=== PATIENT | female | born 1930 | race Caucasian/White ===

== ENCOUNTER → 2016-11-30 | Outpatient (CLI) | payer MEDICARE, OTHER ==
--- NOTE | 2016-11-30 12:06 | MM ---
Reason for exam: clinical finding. Last mammogram was performed 13 years and 8 months ago. History: Patient history of breast cancer and is nulliparous. Excisional biopsy of the right breast. Mastectomy of the right breast. Took estrogen beginning at age 46. Physical Findings: Nurse Summary: 2cm nodule in the left breast at 1 o'clock (nurse arvin). MG 3D Diag Mammo W/Cad LT CC and MLO view(s) were taken of the left breast. Prior study comparison: March 25, 2003, left breast screening mammogram. March 29, 2002, left breast diagnostic mammogram. The breast tissue is heterogeneously dense. This may lower the sensitivity of mammography. Spiculated mass in the left breast at 1 o'clock measuring approximately 1.5cm with internal pleomorphic calcifications. Ultrasound recommended. No additional masses seen. These results were verbally communicated with the patient and result sheet given to the patient on 11/30/16. ASSESSMENT: Incomplete: need additional imaging evaluation, BI-RAD 0 RECOMMENDATION: Ultrasound of the left breast. Manage patient on a clinical basis. CRYSTAL
--- NOTE | 2016-11-30 12:10 | USB ---
Reason for exam: additional evaluation requested from abnormal screening. History: Patient history of breast cancer and is nulliparous. Excisional biopsy of the right breast. Mastectomy of the right breast. Took estrogen beginning at age 46. US Breast Limited LT Left breast ultrasound demonstrates a 1.2 x 0.6 x 1.6cm irregular, spiculated, taller than wide, solid, vascular, hypoechoic lesion with calcifications at 1 o'clock palpable. These results were verbally communicated with the patient and result sheet given to the patient on 11/30/16. ASSESSMENT: Highly suggestive of malignancy, BI-RAD 5 RECOMMENDATION: Ultrasound core biopsy of the left breast. Manage patient on a clinical basis. Called Dr. Griffin with mammographic findings and has scheduled an appointment for the patient for 12/06/16 at 9:[address] Gillespie. PRELIMINARY REPORT CALLED AND FAXED TO DR. GILLESPIE ON 11/30/16/TMP.
--- NOTE | 2016-11-30 13:26 | BD ---
EXAMINATION TYPE: MG DEXA axial skeleton. 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 History of Fracture in Adulthood: YES LT HIP FX AGE 75 Secondary Osteoporosis: 1. Type 1 Diabetes: NO 2. Hyperthyroidism: NO 3. Menopause before 45: YES AGE 43 4. Malnutrition: NO 5. Chronic liver disease: NO Rheumatoid Arthritis: NO Current Tobacco Use: NO RISK FACTORS HISTORY OF: Hip Fracture (Left): YES When: AGE 75 Active: MODERATE Postmenopausal woman: AGE 43 Take estrogen and/or progesterone medications: NOT NOW How long: AGE 43 - 46 MEDICATIONS: Additional Medications: REPAGLINIDE, METOPROLOL, METFORMIN, ENALAPRIL, LOW DOSE ASPIRIN, PREVASTATIN , WARFARIN, FISH OIL, ZYRTEC, AZO CRANBERRY, Additional History: BREAST CANCER EXAM MEASUREMENTS: Bone mineral densitometry was performed using the Jammcard System. Bone mineral density as measured about the Lumbar spine is: ----- L1-L4(G/cm2): 1.119 T Score Values are as follows: ----- L2: -0.2 ----- L3: -0.2 ----- L4: -0.9 ----- L1-L4: -0.5 Bone mineral density has: Increased 8.3% since study of: 05/25/2010 Bone mineral density about the R hip (g/cm2): 0.746 T Score values are as follows: -----R Neck: -2.1 -----R Total: -2.0 Bone mineral density has: Decreased -8.3% since study of: 05/25/2010 IMPRESSION: Osteopenia about the right hip and as such there is increased fracture risk. NOTE: T-SCORE=SD OF THE YOUNG ADULT MEAN.
== END | disposition home or self-care (01) ==
LOC: RADMAMWWP 10:02
PROVIDERS: ATTEND Internal Medicine Geriatric Medicine
DX: C50.919 Malignant neoplasm of unspecified site of unspecified female breast (principal); M85.88 Other specified disorders of bone density and structure, other site; R92.8 Other abnormal and inconclusive findings on diagnostic imaging of breast
CPT/HCPCS: 77080; 76642; G0206; G0279

== ENCOUNTER → 2016-12-14 | Day surgery (SDC) | payer MEDICARE, OTHER ==
[2016-12-14 11:32] LABS: INR 1.1 (<1.2); Prothrombin Time 10.7 sec (9.0-12.0)
[2016-12-14 12:18] VITALS: RESP 16; BMI 24.7
[2016-12-14 13:23] VITALS: BP 145/65; PULSE 70; TEMP 98.3
--- NOTE | 2016-12-14 13:30 | USB ---
EXAMINATION TYPE: US breast needle core LT DATE OF EXAM: 12/14/2016 HISTORY: Left breast mass. FINDINGS: Maximal barrier technique was utilized. The skin overlying a suitable path to the patient' s mass was localized with ultrasound and the overlying skin prepped and draped. Ultrasound was utili zed with sterile technique. Lidocaine was used for local anesthesia. A skin nicole was made with a sc alpel. An 14-gauge needle was advanced under direct ultrasound guidance and core specimen obtained o f the mass. Specimen submitted in formalin to Pathology. Following the procedure, hemostasis achiev ed and the patient is discharged in stable condition without complication. IMPRESSION:STATUS POST ULTRASOUND GUIDED CORE BIOPSY OF 12:00 left breast MASS, PATHOLOGY IS PENDING. THIS PROCEDURE IS PERFORMED BY THE UNDERSIGNED.
--- NOTE | 2016-12-14 13:32 | MM ---
Diagnostic left mammogram HISTORY: Status post left breast biopsy, marker placement 2 digital mammographic views of the left breast correlated to pre biopsy mammogram dated 11/30/2016 Metallic marker has been placed immediately adjacent to the left breast mass. IMPRESSION: Mammogram for marker placement verification.
== END ==
LOC: RADUSWWP 10:46
PROVIDERS: ATTEND Student in an Organized Health Care Education/Training Program
DX: C50.912 Malignant neoplasm of unspecified site of left female breast (principal)
CPT/HCPCS: 88305; 85610; 85730; 19083; 36415; G0206; A4648

== ENCOUNTER 2018-02-18 10:33 | Emergency (ER) | payer MEDICARE, OTHER ==
[2018-02-18] MEDS ORDERED: SODIUM CHLORIDE 0.9% 500 ML 500 ML IV STA (10:46)
[2018-02-18 10:58] VITALS: TEMP 98.5
--- NOTE | 2018-02-18 11:00 | ED ---
General Adult HPI - General Stated complaint: A FIB Time Seen by Provider: 02/18/18 10:36 Source: patient, EMS, RN notes reviewed, old records reviewed Mode of arrival: EMS Limitations: no limitations - History of Present Illness Initial comments: 87-year-old female history of atrial fibrillation presenting for evaluation of palpitations. Palpitations began approximately one hour prior to arrival. Patient is currently on Coumadin and metoprolol for her A. fib. She does have history of CAD with 1 stent. Patient denies chest pain. She did have some neck discomfort associated with her palpitations. No dyspnea. No diaphoresis. No abdominal pain. No nausea vomiting. No fever or chills. No dysuria. - Related Data Home Medications Medication Instructions Recorded Confirmed Enalapril [Vasotec] 10 mg PO DAILY 11/21/14 02/18/18 Fish Oil/Dha/Epa [Fish Oil 1,200 1 cap PO BID 11/21/14 02/18/18 mg Fish Oil] Multivit-Min/FA/Lycopene/Lut 1 tab PO Q48H 11/21/14 02/18/18 [Centrum Silver Tablet] Pravastatin Sodium [Pravachol] 40 mg PO HS 11/21/14 02/18/18 Repaglinide [Prandin] 0.5 mg PO TID 11/21/14 02/18/18 Warfarin [Coumadin] 2.5 mg PO MOWEFR 11/21/14 02/18/18 Warfarin [Coumadin] 5 mg PO SUTUTHSA 12/08/16 02/18/18 metFORMIN HCL [Glucophage] 500 mg PO BID 12/08/16 02/18/18 Acetaminophen Tab [Tylenol Tab] 500 mg PO Q6HR PRN 02/18/18 02/18/18 Alendronate Sodium [Fosamax] 70 mg PO TH 02/18/18 02/18/18 Anastrozole [Arimidex] 1 mg PO W/SUPPER 02/18/18 02/18/18 Calcium Citrate 250 mg PO BID 02/18/18 02/18/18 Cetirizine HCl [Zyrtec] 10 mg PO DAILY 02/18/18 02/18/18 Cranberry Fruit Extract [Cranberry] 200 mg PO DAILY 02/18/18 02/18/18 Isosorbide Mononitrate ER [Imdur] 30 mg PO DAILY 02/18/18 02/18/18 Lisinopril [Zestril] 10 mg PO DAILY 02/18/18 02/18/18 Metoprolol Succinate (ER) [Toprol 25 mg PO DAILY 02/18/18 02/18/18 Xl] Nitroglycerin Sl Tabs [Nitrostat] 0.4 mg SUBLINGUAL Q5M PRN 02/18/18 02/18/18 Allergies Allergy/AdvReac Type Severity Reaction Status Date / Time cefuroxime [From Ceftin] Allergy Unknown Verified 02/18/18 12:16 latex Allergy Rash/Hives Verified 02/18/18 12:15 glipizide AdvReac Unknown Verified 02/18/18 12:15 phenazopyridine HCl AdvReac Unknown Verified 02/18/18 12:15 [From Pyridium] sulfamethoxazole AdvReac Unknown Verified 02/18/18 12:15 [From Bactrim] ticlopidine HCl [From Ticlid] AdvReac Diarrhea Verified 02/18/18 12:15 trimethoprim [From Bactrim] AdvReac Unknown Verified 02/18/18 12:15 CANNED SALMON Allergy Severe Anaphylaxis Uncoded 12/08/16 16:15 CANNED TUNA Allergy Severe Anaphylaxis Uncoded 12/08/16 16:15 Review of Systems ROS Statement: Those systems with pertinent positive or pertinent negative responses have been documented in the HPI. ROS Other: All systems not noted in ROS Statement are negative. Past Medical History Past Medical History: Coronary Artery Disease (CAD), Chest Pain / Angina, Diabetes Mellitus, Hyperlipidemia, Hypertension Additional Past Medical History / Comment(s): afib History of Any Multi-Drug Resistant Organisms: None Reported Past Surgical History: No Surgical Hx Reported Additional Past Surgical History / Comment(s): rt cataract, rt breast bx/ masectomy. lt hand sx, LT EYE PROTHESIS Past Anesthesia/Blood Transfusion Reactions: Postoperative Nausea & Vomiting ( PONV) Past Psychological History: No Psychological Hx Reported Smoking Status: Never smoker Past Alcohol Use History: None Reported Past Drug Use History: None Reported - Past Family History Father Family Medical History: Dementia, Myocardial Infarction ([place]) Mother Family Medical History: Renal Disease, Rheumatoid Arthritis (RA) Additional Family Medical History / Comment(s): HEART PROBLEMS General Exam Limitations: no limitations General appearance: alert, in no apparent distress Head exam: Present: atraumatic, normocephalic Eye exam: Present: normal appearance, PERRL ENT exam: Present: normal exam Neck exam: Present: normal inspection. Absent: tenderness, meningismus Respiratory exam: Present: normal lung sounds bilaterally. Absent: respiratory distress, wheezes Cardiovascular Exam: Present: regular rate, normal rhythm GI/Abdominal exam: Present: soft. Absent: distended, tenderness Extremities exam: Present: pedal edema (trace) Neurological exam: Present: alert, oriented X3, CN II-XII intact. Absent: motor sensory deficit Psychiatric exam: Present: normal affect, normal mood Skin exam: Present: warm, dry, intact. Absent: cyanosis, diaphoretic Course Vital Signs 02/18/18 10:46 Temperature 98.5 F Pulse Rate 75 Respiratory 18 Rate Blood Pressure 196/103 O2 Sat by Pulse 98 Oximetry EKG Findings - EKG Comments: EKG Findings:: Sinus rhythm with first-degree AV block, left ventricular hypertrophy, ventricular rate 73, TX interval 218, QRS duration 84, QTC 436, no ST segment elevation Medical Decision Making - Medical Decision Making 87 yo female presenting with chief complaint of palpitations. No chest pain. EKG shows sinus rhythm with first-degree AV block. She has normal CBC, normal CMP and electrolytes. Troponin negative. INR is therapeutic at 2.6. Chest x- ray shows hyperinflation and cardiomegaly, no focal pneumonia or acute findings. Patient will continue medications at home as prescribed. 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 Initial blood pressure is high however this normalizes without treatment - Lab Data Result diagrams: 02/18/18 10:39 02/18/18 10:39 Lab Results 02/18/18 02/18/18 02/18/18 Range/Units 10:39 10:39 10:39 WBC 5.1 (3.8-10.6) k/uL RBC 4.94 (3.80-5.40) m/uL Hgb 13.5 (11.4-16.0) gm/dL Hct 40.6 (34.0-46.0) % MCV 82.1 (80.0-100.0) fL MCH 27.3 (25.0-35.0) pg MCHC 33.3 (31.0-37.0) g/dL RDW 15.5 (11.5-15.5) % Plt Count 136 L (150-450) k/uL Neutrophils % 66 % Lymphocytes % 24 % Monocytes % 6 % Eosinophils % 2 % Basophils % 1 % Neutrophils # 3.4 (1.3-7.7) k/uL Lymphocytes # 1.2 (1.0-4.8) k/uL Monocytes # 0.3 (0-1.0) k/uL Eosinophils # 0.1 (0-0.7) k/uL Basophils # 0.0 (0-0.2) k/uL PT (9.0-12.0) sec INR (<1.2) APTT (22.0-30.0) sec Sodium 135 L (137-145) mmol/L Potassium 3.9 (3.5-5.1) mmol/L Chloride 101 (98-107) mmol/L Carbon Dioxide 26 (22-30) mmol/L Anion Gap 8 mmol/L BUN 25 H (7-17) mg/dL Creatinine 0.53 (0.52-1.04) mg/dL Est GFR (CKD-EPI)AfAm >90 (>60 ml/min/1.73 sqM) Est GFR (CKD-EPI)NonAf 87 (>60 ml/min/1.73 sqM) Glucose 234 H (74-99) mg/dL Calcium 9.1 (8.4-10.2) mg/dL Magnesium 1.6 (1.6-2.3) mg/dL Total Bilirubin 0.6 (0.2-1.3) mg/dL AST 20 (14-36) U/L ALT 28 (9-52) U/L Alkaline Phosphatase 41 (38-126) U/L Total Creatine Kinase 56 (30-135) U/L CK-MB (CK-2) 2.0 (0.0-2.4) ng/mL CK-MB (CK-2) Rel Index 3.6 Troponin I <0.012 (0.000-0.034) ng/mL Total Protein 6.2 L (6.3-8.2) g/dL Albumin 3.6 (3.5-5.0) g/dL 02/18/18 Range/Units 10:39 WBC (3.8-10.6) k/uL RBC (3.80-5.40) m/uL Hgb (11.4-16.0) gm/dL Hct (34.0-46.0) % MCV (80.0-100.0) fL MCH (25.0-35.0) pg MCHC (31.0-37.0) g/dL RDW (11.5-15.5) % Plt Count (150-450) k/uL Neutrophils % % Lymphocytes % % Monocytes % % Eosinophils % % Basophils % % Neutrophils # (1.3-7.7) k/uL Lymphocytes # (1.0-4.8) k/uL Monocytes # (0-1.0) k/uL Eosinophils # (0-0.7) k/uL Basophils # (0-0.2) k/uL PT 23.0 H (9.0-12.0) sec INR 2.6 H (<1.2) APTT 29.5 (22.0-30.0) sec Sodium (137-145) mmol/L Potassium (3.5-5.1) mmol/L Chloride (98-107) mmol/L Carbon Dioxide (22-30) mmol/L Anion Gap mmol/L BUN (7-17) mg/dL Creatinine (0.52-1.04) mg/dL Est GFR (CKD-EPI)AfAm (>60 ml/min/1.73 sqM) Est GFR (CKD-EPI)NonAf (>60 ml/min/1.73 sqM) Glucose (74-99) mg/dL Calcium (8.4-10.2) mg/dL Magnesium (1.6-2.3) mg/dL Total Bilirubin (0.2-1.3) mg/dL AST (14-36) U/L ALT (9-52) U/L Alkaline Phosphatase (38-126) U/L Total Creatine Kinase (30-135) U/L CK-MB (CK-2) (0.0-2.4) ng/mL CK-MB (CK-2) Rel Index Troponin I (0.000-0.034) ng/mL Total Protein (6.3-8.2) g/dL Albumin (3.5-5.0) g/dL Disposition Clinical Impression: Palpitations, Atrial fibrillation Disposition: HOME SELF-CARE Condition: Good Instructions: Heart Palpitations (ED) Is patient prescribed a controlled substance at d/c from ED?: No Referrals: Godfrey Griffin MD [Primary Care Provider] - 1-2 days Darlin Arriaga MD [STAFF PHYSICIAN] - 1-2 days Time of Disposition: 12:45
[2018-02-18 11:05] LABS: Basophils % (A) 1 %; Eosinophils # (A) 0.1 k/uL (0-0.7); Eosinophils % (A) 2 %; HCT 40.6 % (34.0-46.0); HGB 13.5 gm/dL (11.4-16.0); Lymphocytes # (A) 1.2 k/uL (1.0-4.8); Lymphocytes % (A) 24 %; MCH 27.3 pg (25.0-35.0); MCHC 33.3 g/dL (31.0-37.0); MCV 82.1 fL (80.0-100.0); Monocytes # (A) 0.3 k/uL (0-1.0); Monocytes % (A) 6 %; Neutrophils # (A) 3.4 k/uL (1.3-7.7); Neutrophils % (A) 66 %; Platelet Count 136 k/uL (150-450); RBC 4.94 m/uL (3.80-5.40); RDW 15.5 % (11.5-15.5); WBC 5.1 k/uL (3.8-10.6)
[2018-02-18 11:14] LABS: ALT 28 U/L (9-52); AST 20 U/L (14-36); Albumin 3.6 g/dL (3.5-5.0); Alkaline Phosphatase 41 U/L (38-126); Anion Gap 8 mmol/L; Blood Urea Nitrogen 25 mg/dL (7-17); Calcium 9.1 mg/dL (8.4-10.2); Carbon Dioxide 26 mmol/L (22-30); Chloride 101 mmol/L (98-107); Glucose 234 mg/dL (74-99); Magnesium 1.6 mg/dL (1.6-2.3); Potassium 3.9 mmol/L (3.5-5.1); Sodium 135 mmol/L (137-145); Total Bilirubin 0.6 mg/dL (0.2-1.3); Total Protein 6.2 g/dL (6.3-8.2)
[2018-02-18 11:33] LABS: Creatine Kinase 56 U/L (30-135)
[2018-02-18 11:41] LABS: INR 2.6 (<1.2); Partial Thromboplastin Time 29.5 sec (22.0-30.0)
[2018-02-18 11:46] LABS: Troponin I <0.012 ng/mL (0.000-0.034)
--- NOTE | 2018-02-18 11:50 | XR ---
EXAMINATION TYPE: XR chest 2V DATE OF EXAM: 02/18/2018 HISTORY: dysrhythmia. REFERENCE: NONE. FINDINGS: Lung volumes are prominent. The heart is mildly enlarged. There are senescent changes withi n the lungs. I do not see evidence of pneumonia or edema. Pleural spaces are clear. IMPRESSION: 1. COPD. 2. CARDIOMEGALY.
[2018-02-18] MEDS ORDERED: SODIUM CHLORIDE 0.9% 500 ML 500 ML IV ONE (12:21)
[2018-02-18 12:48] VITALS: BP 144/64; PULSE 62; RESP 20
== END 2018-02-18 13:04 | disposition home or self-care (01) ==
LOC: EC 10:33
DX: I48.91 Unspecified atrial fibrillation (principal); I44.0 Atrioventricular block, first degree; R91.8 Other nonspecific abnormal finding of lung field; R60.0 Localized edema; E78.5 Hyperlipidemia, unspecified; I11.9 Hypertensive heart disease without heart failure; I25.10 Atherosclerotic heart disease of native coronary artery without angina pectoris; E11.9 Type 2 diabetes mellitus without complications; Z88.1 Allergy status to other antibiotic agents; Z88.2 Allergy status to sulfonamides; Z88.8 Allergy status to other drugs, medicaments and biological substances; Z91.018 Allergy to other foods; Z91.040 Latex allergy status; Z79.01 Long term (current) use of anticoagulants; Z79.84 Long term (current) use of oral hypoglycemic drugs; Z79.899 Other long term (current) drug therapy; Z86.79 Personal history of other diseases of the circulatory system; Z82.49 Family history of ischemic heart disease and other diseases of the circulatory system; Z95.818 Presence of other cardiac implants and grafts
CPT/HCPCS: 36415; 71046; 80053; 82550; 82553; 83735; 84484; 85025; 85610; 85730; 93005; 96360; 96361; 99285

== ENCOUNTER 2018-09-18 03:53 | Observation (INO) | payer MEDICARE, OTHER ==
[2018-09-18] MEDS ORDERED: SODIUM CHLORIDE 0.9% 500 ML 500 ML IV ONE (04:39)
--- NOTE | 2018-09-18 04:43 | ED ---
Fall HPI - General Chief Complaint: Fall Stated Complaint: Fall Source: patient Mode of arrival: ambulatory - History of Present Illness Initial Comments: Brenna is a pleasant 88-year-old female who presents to the emergency department today for evaluation of fall from standing. Patient reports she got up this morning to use the restroom and was able to ambulate independently to her bathroom. She reports that when she went to sit down and sat of sitting backwards she fell forwards striking her right forearm and right side of her ribs on the bathtub. Patient reports that her legs just twisted like pretzels underneath her and she had a lot of trouble getting them untwisted. Initially she had trouble getting back up on her feet but with assistance she was able stand and ambulate. Patient reports that since the fall she has pain in her right ankle she had pain in her right hip but it seems to have resolved, and pain in her right-sided ribs. Patient does take Coumadin. Patient did not lose consciousness she did not strike her head. The fall was mechanical in nature. Patient does report that she's been urinating very frequently which is why she was up at 3:30 in the morning to use a restaurant. - Related Data Home Medications Medication Instructions Recorded Confirmed Enalapril [Vasotec] 10 mg PO DAILY 11/21/14 02/18/18 Fish Oil/Dha/Epa [Fish Oil 1,200 1 cap PO BID 11/21/14 02/18/18 mg Fish Oil] Multivit-Min/FA/Lycopene/Lut 1 tab PO Q48H 11/21/14 02/18/18 [Centrum Silver Tablet] Pravastatin Sodium [Pravachol] 40 mg PO HS 11/21/14 02/18/18 Repaglinide [Prandin] 0.5 mg PO TID 11/21/14 02/18/18 Warfarin [Coumadin] 2.5 mg PO MOWEFR 11/21/14 02/18/18 Warfarin [Coumadin] 5 mg PO SUTUTHSA 12/08/16 02/18/18 metFORMIN HCL [Glucophage] 500 mg PO BID 12/08/16 02/18/18 Acetaminophen Tab [Tylenol Tab] 500 mg PO Q6HR PRN 02/18/18 02/18/18 Alendronate Sodium [Fosamax] 70 mg PO TH 02/18/18 02/18/18 Anastrozole [Arimidex] 1 mg PO W/SUPPER 02/18/18 02/18/18 Calcium Citrate 250 mg PO BID 02/18/18 02/18/18 Cetirizine HCl [Zyrtec] 10 mg PO DAILY 02/18/18 02/18/18 Cranberry Fruit Extract [Cranberry] 200 mg PO DAILY 02/18/18 02/18/18 Isosorbide Mononitrate ER [Imdur] 30 mg PO DAILY 02/18/18 02/18/18 Lisinopril [Zestril] 10 mg PO DAILY 02/18/18 02/18/18 Metoprolol Succinate (ER) [Toprol 25 mg PO DAILY 02/18/18 02/18/18 Xl] Nitroglycerin Sl Tabs [Nitrostat] 0.4 mg SUBLINGUAL Q5M PRN 02/18/18 02/18/18 Allergies Allergy/AdvReac Type Severity Reaction Status Date / Time cefuroxime [From Ceftin] Allergy Unknown Verified 09/18/18 04:01 latex Allergy Rash/Hives Verified 09/18/18 04:01 glipizide AdvReac Unknown Verified 09/18/18 04:01 phenazopyridine HCl AdvReac Unknown Verified 09/18/18 04:01 [From Pyridium] sulfamethoxazole AdvReac Unknown Verified 09/18/18 04:01 [From Bactrim] ticlopidine HCl [From Ticlid] AdvReac Diarrhea Verified 09/18/18 04:01 trimethoprim [From Bactrim] AdvReac Unknown Verified 09/18/18 04:01 CANNED SALMON Allergy Severe Anaphylaxis Uncoded 09/18/18 04:01 CANNED TUNA Allergy Severe Anaphylaxis Uncoded 09/18/18 04:01 Review of Systems ROS Statement: Those systems with pertinent positive or pertinent negative responses have been documented in the HPI. ROS Other: All systems not noted in ROS Statement are negative. Past Medical History Past Medical History: Coronary Artery Disease (CAD), Chest Pain / Angina, Diabetes Mellitus, Hyperlipidemia, Hypertension Additional Past Medical History / Comment(s): afib History of Any Multi-Drug Resistant Organisms: None Reported Past Surgical History: No Surgical Hx Reported Additional Past Surgical History / Comment(s): rt cataract, rt breast bx/mas ectomy. lt hand sx, LT EYE PROTHESIS Past Anesthesia/Blood Transfusion Reactions: Postoperative Nausea & Vomiting (PONV) Past Psychological History: No Psychological Hx Reported Smoking Status: Never smoker Past Alcohol Use History: None Reported Past Drug Use History: None Reported - Past Family History Father Family Medical History: Dementia, Myocardial Infarction ([place]) Mother Family Medical History: Renal Disease, Rheumatoid Arthritis (RA) Additional Family Medical History / Comment(s): HEART PROBLEMS General Exam - General Exam Comments Initial Comments: Physical Exam GENERAL: Well-appearing elderly female HENT: Normocephalic, atraumatic EYES: PERRL, EOMI Left I is sunken with surgical changes PULMONARY: Unlabored respirations. No audible rales rhonchi or wheezing was noted. CARDIOVASCULAR: RRR ABDOMEN: Soft and nontender with normal bowel sounds. SKIN: Contusion right forearm : Deferred Diapered NEUROLOGIC: Patient is alert and oriented x3. Moving all extremities spontaneously MUSCULOSKELETAL: Patient with range of motion of right ankle, full range of motion of right knee and hip with no pain no obvious deformity PSYCHIATRIC: Normal psychiatric evaluation Limitations: no limitations Course Vital Signs 09/18/18 03:58 Temperature 98.2 F Pulse Rate 75 Respiratory 16 Rate Blood Pressure 181/68 O2 Sat by Pulse 98 Oximetry Medical Decision Making - Medical Decision Making The patient was seen and evaluated, history is obtained from the patient and EMS Please a 88-year-old female with a mechanical fall and contusions Labs and x-rays were ordered X-rays with no acute findings Labs reveal a subtherapeutic INR Urinalysis is consistent with urinary tract infection patient has multiple medication ALLERGIES therefore Macrobid was ordered for urinary tract infection Given the patient's advanced age, generalized weakness and the fact that she lives alone I do not feel that she is safe for discharge home at this time. Patient care was discussed with admitting physician Dr. cathy wilde who agrees and will plan to admit the patient for urinary tract infection generalized weakness fall at home subtherapeutic INR. - Lab Data Result diagrams: 09/18/18 04:19 09/18/18 04:19 Lab Results 09/18/18 09/18/18 09/18/18 Range/Units 04:19 04:19 04:19 WBC 7.4 (3.8-10.6) k/uL RBC 4.47 (3.80-5.40) m/uL Hgb 12.2 (11.4-16.0) gm/dL Hct 36.8 (34.0-46.0) % MCV 82.4 (80.0-100.0) fL MCH 27.2 (25.0-35.0) pg MCHC 33.0 (31.0-37.0) g/dL RDW 15.1 (11.5-15.5) % Plt Count 162 (150-450) k/uL Neutrophils % 69 % Lymphocytes % 21 % Monocytes % 6 % Eosinophils % 2 % Basophils % 1 % Neutrophils # 5.1 (1.3-7.7) k/uL Lymphocytes # 1.6 (1.0-4.8) k/uL Monocytes # 0.5 (0-1.0) k/uL Eosinophils # 0.1 (0-0.7) k/uL Basophils # 0.0 (0-0.2) k/uL PT 13.2 H (9.0-12.0) sec INR 1.3 H (<1.2) APTT 28.6 (22.0-30.0) sec Sodium 133 L (137-145) mmol/L Potassium 4.0 (3.5-5.1) mmol/L Chloride 97 L (98-107) mmol/L Carbon Dioxide 29 (22-30) mmol/L Anion Gap 7 mmol/L BUN 26 H (7-17) mg/dL Creatinine 0.51 L (0.52-1.04) mg/dL Est GFR (CKD-EPI)AfAm >90 (>60 ml/min/1.73 sqM) Est GFR (CKD-EPI)NonAf 87 (>60 ml/min/1.73 sqM) Glucose 122 H (74-99) mg/dL Calcium 9.4 (8.4-10.2) mg/dL Urine Color Urine Appearance (Clear) Urine pH (5.0-8.0) Ur Specific [place] (1.001-1.035) Urine Protein (Negative) Urine Glucose (UA) (Negative) Urine Ketones (Negative) Urine Blood (Negative) Urine Nitrite (Negative) Urine Bilirubin (Negative) Urine Urobilinogen (<2.0) mg/dL Ur Leukocyte Esterase (Negative) Urine RBC (0-5) /hpf Urine WBC (0-5) /hpf Ur Squamous Epith Cells (0-4) /hpf Ur Renal Epithelial Cell (0) /hpf Urine Bacteria (None) /hpf Urine Mucus (None) /hpf 09/18/18 Range/Units 05:14 WBC (3.8-10.6) k/uL RBC (3.80-5.40) m/uL Hgb (11.4-16.0) gm/dL Hct (34.0-46.0) % MCV (80.0-100.0) fL MCH (25.0-35.0) pg MCHC (31.0-37.0) g/dL RDW (11.5-15.5) % Plt Count (150-450) k/uL Neutrophils % % Lymphocytes % % Monocytes % % Eosinophils % % Basophils % % Neutrophils # (1.3-7.7) k/uL Lymphocytes # (1.0-4.8) k/uL Monocytes # (0-1.0) k/uL Eosinophils # (0-0.7) k/uL Basophils # (0-0.2) k/uL PT (9.0-12.0) sec INR (<1.2) APTT (22.0-30.0) sec Sodium (137-145) mmol/L Potassium (3.5-5.1) mmol/L Chloride (98-107) mmol/L Carbon Dioxide (22-30) mmol/L Anion Gap mmol/L BUN (7-17) mg/dL Creatinine (0.52-1.04) mg/dL Est GFR (CKD-EPI)AfAm (>60 ml/min/1.73 sqM) Est GFR (CKD-EPI)NonAf (>60 ml/min/1.73 sqM) Glucose (74-99) mg/dL Calcium (8.4-10.2) mg/dL Urine Color Colorless Urine Appearance Cloudy H (Clear) Urine pH 7.5 (5.0-8.0) Ur Specific [place] 1.004 (1.001-1.035) Urine Protein Trace H (Negative) Urine Glucose (UA) Negative (Negative) Urine Ketones Trace H (Negative) Urine Blood Trace H (Negative) Urine Nitrite Negative (Negative) Urine Bilirubin Negative (Negative) Urine Urobilinogen <2.0 (<2.0) mg/dL Ur Leukocyte Esterase Large H (Negative) Urine RBC 4 (0-5) /hpf Urine WBC 62 H (0-5) /hpf Ur Squamous Epith Cells <1 (0-4) /hpf Ur Renal Epithelial Cell <1 (0) /hpf Urine Bacteria Few H (None) /hpf Urine Mucus Rare H (None) /hpf - EKG Data -: EKG Interpreted by Me EKG Comments: EKG obtained at 4:06 AM rate is 67 rhythm is sinus there is a first-degree AV block. His leftward axis, [place] is prolonged at 220 QRS is 94 QTc is [address] elevations or depressions no evidence of acute ischemia or infarction. Disposition Clinical Impression: Fall, Subtherapeutic anticoagulation, UTI (urinary tract infection), Generalized weakness Disposition: ADMITTED IP TO THIS HOSP Condition: Stable Referrals: Godfrey Griffin MD [Primary Care Provider] - 1-2 days
[2018-09-18 04:57] LABS: Basophils % (A) 1 %; Eosinophils # (A) 0.1 k/uL (0-0.7); Eosinophils % (A) 2 %; HCT 36.8 % (34.0-46.0); HGB 12.2 gm/dL (11.4-16.0); Lymphocytes # (A) 1.6 k/uL (1.0-4.8); Lymphocytes % (A) 21 %; MCH 27.2 pg (25.0-35.0); MCV 82.4 fL (80.0-100.0); Mean Platelet Volume 8.6; Monocytes # (A) 0.5 k/uL (0-1.0); Monocytes % (A) 6 %; Neutrophils # (A) 5.1 k/uL (1.3-7.7); Neutrophils % (A) 69 %; Platelet Count 162 k/uL (150-450); RBC 4.47 m/uL (3.80-5.40); RDW 15.1 % (11.5-15.5); WBC 7.4 k/uL (3.8-10.6)
[2018-09-18 05:09] LABS: African American GFR (CKD) >90 (>60 ml/min/1.73 sqM); Anion Gap 7 mmol/L; Blood Urea Nitrogen 26 mg/dL (7-17); Calcium 9.4 mg/dL (8.4-10.2); Carbon Dioxide 29 mmol/L (22-30); Chloride 97 mmol/L (98-107); Glucose 122 mg/dL (74-99); INR 1.3 (<1.2); Partial Thromboplastin Time 28.6 sec (22.0-30.0); Prothrombin Time 13.2 sec (9.0-12.0); Sodium 133 mmol/L (137-145)
--- NOTE | 2018-09-18 05:37 | XR ---
EXAM: XR Pelvis Complete, 3 or More Views CLINICAL HISTORY: ITS.REASON XR Reason: fall from standing, no obvious injury TECHNIQUE: Frontal and lateral or oblique views of the pelvis. COMPARISON: No relevant prior studies available. FINDINGS: Bones/joints: Left hip arthroplasty in normal alignment. No acute fracture. Soft tissues: Unremarkable. IMPRESSION: No acute findings.
--- NOTE | 2018-09-18 05:38 | XR ---
EXAM: XR Right Ribs, 2 Views CLINICAL HISTORY: ITS.REASON XR Reason: fall from standing, no obvious injury TECHNIQUE: Frontal and oblique views of the right ribs. COMPARISON: No relevant prior studies available. FINDINGS: Lungs: Unremarkable as visualized. No consolidation. Pleural space: Unremarkable. No pneumothorax. Bones/joints: Unremarkable. No acute fracture. IMPRESSION: Normal right rib x-rays.
--- NOTE | 2018-09-18 05:39 | XR ---
EXAM: XR Right Ankle Complete, 3 or More Views CLINICAL HISTORY: ITS.REASON XR Reason: fall from standing, no obvious injury TECHNIQUE: Frontal, lateral and oblique views of the right ankle. COMPARISON: No relevant prior studies available. FINDINGS: Bones/joints: Unremarkable. No acute fracture. No dislocation. Soft tissues: Unremarkable. IMPRESSION: Normal right ankle x-rays.
[2018-09-18 06:07] LABS: Appearance,Urine Cloudy (Clear); Bacteria,Urine Few /hpf; Bilirubin,Urine Negative (Negative); Blood,Urine Trace (Negative); Color,Urine Colorless; Glucose,Urine (UA) Negative (Negative); Ketones,Urine Trace (Negative); Leukocyte Esterase,Urine Large (Negative); Mucus,Urine Rare /hpf; Nitrite,Urine Negative (Negative); PH, Urine 7.5 (5.0-8.0); Protein,Urine Trace (Negative); RBC,Urine 4 /hpf (0-5); Renal Epithelial Cells,Urine <1 /hpf (0); Specific Gravity,Urine 1.004 (1.001-1.035); Squamous Epithelial Cell,Urine <1 /hpf (0-4); Urobilinogen,Urine <2.0 mg/dL (<2.0)
[2018-09-18] MEDS ORDERED: NALOXONE 0.4 MG/ML 1 ML VIAL IV PRN (06:40)
[2018-09-18] MEDS ORDERED: NITROFURANTOIN MONOHYD/M-CRYST 100 MG CAP PO STA (06:42)
[2018-09-18] MEDS ORDERED: MELATONIN 5 MG TABLET PO PRN (18:32)
[2018-09-18] MEDS ORDERED: ACETAMINOPHEN TAB 500 MG TAB PO PRN (18:32)
--- NOTE | 2018-09-18 19:06 | P.HPIM ---
History of Present Illness H&P Date: 09/18/18 Chief Complaint: weakness and fall urinary frequency and pain this is an 88-year-old pleasant lady patient of Dr. Griffin. She has underlying history of hypertension and breast cancer him a diabetes mellitus type 2,on long-term Coumadin for anticoagulation and atrial fibrillation, admitted to emergency room after a fall at home. Patient was walking with her ability to walk her, heading to the bathroom, and attempting to sit down,has symptoms of nausea and urinary frequency for approximately one week. Patient on lean forward, however she lost her balance and fell forward. Patient with tip the right side of her ribs, elevated the right side of her arm and right side of her hip, was subsequently seen in the emergency room secondary to pain, she also notes increasing urinary frequency, urinary discomfort, some nausea, no loss of consciousness, no hematuria, patient has foul-smelling urine. Patient denies any fever, no flank pain prior to the fall, patient denies any prior history of drug resistance Emergency room, she was evaluated for her falls, x-rays of the rib cage, hips, and ankles were negative for fracture, she was found to have urinary tract infection, and was started on IV Levaquin, based on her ALLERGIES to Ceftin, and Bactrim cultures has been sentpatient will be monitored for orthostatics prior to discharge, patient is fall risk, physical therapist to see the patient Coumadin is sub-Therapeutic upon admission, patient lives alone Review of Systems Constitutional: Reports as per HPI, Reports anorexia, Reports lethargy, Reports malaise, Reports poor appetite, Reports weakness Ears, nose, mouth and throat: Reports as per HPI, Denies ant. neck pain, Denies bleeding gums, Denies dental pain, Denies dysphagia, Denies epistaxis, Denies headache, Denies hoarseness, Denies mouth pain, Denies nasal congestion, Denies nasal discharge, Denies neck fullness/pressure, Denies neck lump, Denies nose pain, Denies odynophagia, Denies post-nasal drip, Denies sinus pain, Denies sin us pressure, Denies swelling in mouth, Denies swelling in throat, Denies sore throat, Denies vertigo, Denies voice changes Cardiovascular: Reports as per HPI, Denies chest pain, Denies claudication, Denies decreased exercise tolerance, Denies dyspnea on exertion, Denies edema, Denies high blood pressure, Denies irregular heart beat, Denies leg edema, Denies lightheadedness, Denies orthopnea, Denies palpitations, Denies paroxysmal nocturnal dyspnea, Denies phlebitis, Denies rapid heart beat, Denies shortness of breath, Denies syncope Respiratory: Reports as per HPI Gastrointestinal: Reports as per HPI Genitourinary: Reports as per HPI, Reports dysuria, Reports urge incontinence, Reports urgency, Reports urinary frequency, Denies abnormal vaginal bleeding, Denies decreased libido, Denies difficulty conceiving, Denies difficulty voiding, Denies dysmenorrhea, Denies dyspareunia, Denies flank pain, Denies genital sores, Denies hematuria, Denies hot flashes, Denies incomplete emptying, Denies kidney stones, Denies menorrhagia, Denies mixed incontinence, Denies nocturia, Denies pelvic pain, Denies post void dribbling, Denies , Denies prolapse symptoms, Denies stress incontinence, Denies vaginal discharge, Denies vaginal dryness, Denies vaginal itching, Denies vaginal odor Menstruation: Reports as per HPI Musculoskeletal: Reports as per HPI, Reports frequent falls, Reports gait dysfunction, Reports limitation of motion, Reports low back pain, Reports muscle weakness, Denies arm numbness/tingling, Denies atrophy, Denies fractures, Denies hot joints, Denies leg numbness/tingling, Denies loss of height, Denies morning stiffness, Denies muscle cramps, Denies myalgias, Denies neck pain, Denies neck stiffness, Denies prior amputations, Denies redness of joints, Denies shooting arm pain, Denies shooting leg pain Integumentary: Reports as per HPI Neurological: Reports as per HPI, Reports gait dysfunction, Reports hearing difficulties, Reports weakness, Denies aphasia, Denies ataxia, Denies balance difficulties, Denies burning pain, Denies change in mentation, Denies change in smell/taste, Denies change in speech, Denies confusion, Denies convulsions, Denies double vision, Denies head injury, Denies headaches, Denies lack of coordination, Denies loss of vision, Denies memory loss, Denies migraines, Denies motor disturbance, Denies numbness, Denies paralysis, Denies p aresthesias, Denies seizures, Denies sensory deficit, Denies spasticity, Denies syncope, Denies tic, Denies tingling, Denies transient paralysis, Denies tremors, Denies vertigo, Denies visual changes Psychiatric: Reports as per HPI, Reports insomnia, Denies anhedonia, Denies anxiety, Denies anxiety attacks, Denies change in appetite, Denies change in libido, Denies change in sleep habits, Denies confusion, Denies depression, Denies difficulty concentrating, Denies disorientation, Denies hallucinations, Denies hopelessness, Denies hypersomnia, Denies irritability, Denies memory loss, Denies mood swings, Denies paranoia, Denies sadness/tearfulness, Denies sleep disturbances, Denies suicidal ideation Endocrine: Reports as per HPI, Denies cold intolerance, Denies deepening of the voice, Denies excessive sweating, Denies excessive thirst, Denies fatigue, Denies flushing, Denies heat intolerance, Denies high blood sugars, Denies increase in ring/shoe/hat size, Denies low blood sugars, Denies nocturia, Denies palpitations, Denies polydipsia, Denies polyphagia, Denies polyuria, Denies proptosis, Denies recent glucocorticoid use, Denies thyroid mass, Denies weight change Hematologic/Lymphatic: Reports as per HPI, Denies easy bleeding, Denies easy bruising, Denies lymphadenopathy, Denies lymphedema, Denies thrombophilia Allergic/Immunologic: Reports as per HPI, Denies allergic rhinitis, Denies anaphylaxis, Denies angioedema, Denies gluten intolerance, Denies persistent infections, Denies seasonal allergies, Denies urticaria, Denies wheezing Past Medical History Past Medical History: Atrial Flutter, Coronary Artery Disease (CAD), Cancer, Chest Pain / Angina, Diabetes Mellitus, Eye Disorder, Hyperlipidemia, Hypertension, Osteoarthritis (OA) Additional Past Medical History / Comment(s): Paroxysmal Afib (RVR), NIDDM type II, neuropathy bilateral feet, arthritis mostly in bilateral legs, L eye injury as a child-prosthesis, R breast cancer with mastectomy, TIA, migraines, varicose veins, PAD, bronchitis, sinus problems. History of Any Multi-Drug Resistant Organisms: None Reported Past Surgical History: Adenoidectomy, Appendectomy, Breast Surgery, Hysterectomy, Tonsillectomy Additional Past Surgical History / Comment(s): R eye cataract removal/lens implant, L eye prosthesis, R breast biopsy/mastectomy, R oophorectomy, L hip fracture with hemiarthroplasty. Past Anesthesia/Blood Transfusion Reactions: No Reported Reaction, Postoperative Nausea & Vomiting (PONV) Smoking Status: Never smoker - Past Family History Father Family Medical History: Dementia, Myocardial Infarction ([place]) Mother Family Medical History: Renal Disease, Rheumatoid Arthritis (RA) Additional Family Medical History / Comment(s): HEART PROBLEMS Medications and Allergies Home Medications Medication Instructions Recorded Confirmed Type Fish Oil/Dha/Epa [Fish Oil 1,200 1 cap PO BID 11/21/14 09/18/18 History mg Fish Oil] Multivit-Min/FA/Lycopene/Lut 1 tab PO Q48H 11/21/14 09/18/18 History [Centrum Silver Tablet] Pravastatin Sodium [Pravachol] 40 mg PO HS 11/21/14 09/18/18 History Repaglinide [Prandin] 0.5 mg PO TID 11/21/14 09/18/18 History Warfarin [Coumadin] 2.5 mg PO HS 11/21/14 09/18/18 History metFORMIN HCL [Glucophage] 500 mg PO BID 12/08/16 09/18/18 History Acetaminophen Tab [Tylenol Tab] 500 mg PO Q6HR PRN 02/18/18 09/18/18 History Alendronate Sodium [Fosamax] 70 mg PO TH 02/18/18 09/18/18 History Anastrozole [Arimidex] 1 mg PO W/SUPPER 02/18/18 09/18/18 History Calcium Citrate 250 mg PO BID 02/18/18 09/18/18 History Cetirizine HCl [Zyrtec] 10 mg PO DAILY 02/18/18 09/18/18 History Cranberry Fruit Extract [Cranberry] 200 mg PO DAILY 02/18/18 09/18/18 History Isosorbide Mononitrate ER [Imdur] 30 mg PO DAILY 02/18/18 09/18/18 History Lisinopril [Zestril] 10 mg PO DAILY 02/18/18 09/18/18 History Metoprolol Succinate (ER) [Toprol 25 mg PO DAILY 02/18/18 09/18/18 History Xl] Nitroglycerin Sl Tabs [Nitrostat] 0.4 mg SUBLINGUAL Q5M PRN 02/18/18 09/18/18 History Triamterene/Hydrochlorothiazid 1 cap PO DAILY@1600 09/18/18 09/18/18 History [Dyazide 37.5-25 Capsule] sitaGLIPtin PHOSPHATE [Januvia] 50 mg PO DAILY 09/18/18 09/18/18 History Allergies Allergy/AdvReac Type Severity Reaction Status Date / Time cefuroxime [From Ceftin] Allergy Unknown Verified 09/18/18 08:04 latex Allergy Rash/Hives Verified 09/18/18 08:04 sulfamethoxazole Allergy Unknown Verified 09/18/18 08:05 [From Bactrim] trimethoprim [From Bactrim] Allergy Unknown Verified 09/18/18 08:05 glipizide AdvReac BLOOD Verified 09/18/18 08:05 SUGAR DROP phenazopyridine HCl AdvReac chilled Verified 09/18/18 08:05 [From Pyridium] and fatigued ticlopidine HCl [From Ticlid] AdvReac Diarrhea Verified 09/18/18 08:04 CANNED [place] Allergy Severe Anaphylaxis Uncoded 09/18/18 08:05 CANNED TUNA Allergy Severe Anaphylaxis Uncoded 09/18/18 08:05 Physical Exam Vitals: Vital Signs Temp Pulse Pulse Resp BP BP Pulse Ox 09/18/18 18:18 98.3 F 76 16 136/74 98 09/18/18 16:00 16 09/18/18 14:02 16 09/18/18 14:00 97.7 F 85 16 137/64 95 09/18/18 11:00 84 18 133/86 95 09/18/18 06:50 80 16 183/88 95 09/18/18 05:00 90 18 175/67 100 09/18/18 03:58 98.2 F 75 16 181/68 98 09/18/18 03:57 99 Intake and Output 09/18/18 09/18/18 09/18/18 06:59 14:59 22:59 Other: # Voids 2 Weight 63.957 kg - Constitutional General appearance: average body habitus, cooperative, no disheveled, no mild distress, no morbidly obese, no acute distress, no obese, no severe distress, no thin - EENT Eyes: anicteric sclerae, EOMI, dentition normal, normal appearance ENT: hard of hearing, NA/AT, normal oropharynx - Neck Neck: normal ROM - Respiratory Respiratory: bilateral: CTA, negative: diminished, dullness, rales, wheezing - Cardiovascular Heart sounds: normal: S2, abnormal: S1 Abnormal Heart Sounds: systolic murmur - Gastrointestinal General gastrointestinal: decreased bowel sounds, hyperactive bowel sounds, normal bowel sounds - Integumentary Integumentary: decreased turgor, normal - Neurologic Neurologic: CNII-XII intact - Musculoskeletal Musculoskeletal: gait normal, strength equal bilaterally - Psychiatric Psychiatric: A&O x's 3, appropriate affect, intact judgment & insight Results CBC & Chem 7: 09/18/18 04:19 09/18/18 04:19 Labs: Abnormal Lab Results - Last 24 Hours (Table) 09/18/18 09/18/18 09/18/18 Range/Units 04:19 04:19 05:14 PT 13.2 H (9.0-12.0) sec INR 1.3 H (<1.2) Sodium 133 L (137-145) mmol/L Chloride 97 L (98-107) mmol/L BUN 26 H (7-17) mg/dL Creatinine 0.51 L (0.52-1.04) mg/dL Glucose 122 H (74-99) mg/dL Urine Appearance Cloudy H (Clear) Urine Protein Trace H (Negative) Urine Ketones Trace H (Negative) Urine Blood Trace H (Negative) Ur Leukocyte Esterase Large H (Negative) Urine WBC 62 H (0-5) /hpf Urine Bacteria Few H (None) /hpf Urine Mucus Rare H (None) /hpf Microbiology - Last 24 Hours (Table) 09/18/18 05:14 Urine Culture - Preliminary Urine,Clean Catch Laboratory Results WBC 7.4 k/uL (3.8-10.6) 09/18/18 04:19 RBC 4.47 m/uL (3.80-5.40) 09/18/18 04:19 Hgb 12.2 gm/dL (11.4-16.0) 09/18/18 04:19 Hct 36.8 % (34.0-46.0) 09/18/18 04:19 MCV 82.4 fL (80.0-100.0) 09/18/18 04:19 MCH 27.2 pg (25.0-35.0) 09/18/18 04:19 MCHC 33.0 g/dL (31.0-37.0) 09/18/18 04:19 RDW 15.1 % (11.5-15.5) 09/18/18 04:19 Plt Count 162 k/uL (150-450) 09/18/18 04:19 Neutrophils % 69 % 09/18/18 04:19 Lymphocytes % 21 % 09/18/18 04:19 Monocytes % 6 % 09/18/18 04:19 Eosinophils % 2 % 09/18/18 04:19 Basophils % 1 % 09/18/18 04:19 Neutrophils # 5.1 k/uL (1.3-7.7) 09/18/18 04:19 Lymphocytes # 1.6 k/uL (1.0-4.8) 09/18/18 04:19 Monocytes # 0.5 k/uL (0-1.0) 09/18/18 04:19 Eosinophils # 0.1 k/uL (0-0.7) 09/18/18 04:19 Basophils # 0.0 k/uL (0-0.2) 09/18/18 04:19 PT 13.2 sec (9.0-12.0) H 09/18/18 04:19 INR 1.3 (<1.2) H 09/18/18 04:19 APTT 28.6 sec (22.0-30.0) 09/18/18 04:19 Sodium 133 mmol/L (137-145) L 09/18/18 04:19 Potassium 4.0 mmol/L (3.5-5.1) 09/18/18 04:19 Chloride 97 mmol/L (98-107) L 09/18/18 04:19 Carbon Dioxide 29 mmol/L (22-30) 09/18/18 04:19 Anion Gap 7 mmol/L 09/18/18 04:19 BUN 26 mg/dL (7-17) H 09/18/18 04:19 Creatinine 0.51 mg/dL (0.52-1.04) L 09/18/18 04:19 Est GFR (CKD-EPI)AfAm >90 (>60 ml/min/1.73 sqM) 09/18/18 04:19 Est GFR (CKD-EPI)NonAf 87 (>60 ml/min/1.73 sqM) 09/18/18 04:19 Glucose 122 mg/dL (74-99) H 09/18/18 04:19 Calcium 9.4 mg/dL (8.4-10.2) 09/18/18 04:19 Urine Color Colorless 09/18/18 05:14 Urine Appearance Cloudy (Clear) H 09/18/18 05:14 Urine pH 7.5 (5.0-8.0) 09/18/18 05:14 Ur Specific [place] 1.004 (1.001-1.035) 09/18/18 05:14 Urine Protein Trace (Negative) H 09/18/18 05:14 Urine Glucose (UA) Negative (Negative) 09/18/18 05:14 Urine Ketones Trace (Negative) H 09/18/18 05:14 Urine Blood Trace (Negative) H 09/18/18 05:14 Urine Nitrite Negative (Negative) 09/18/18 05:14 Urine Bilirubin Negative (Negative) 09/18/18 05:14 Urine Urobilinogen <2.0 mg/dL (<2.0) 09/18/18 05:14 Ur Leukocyte Esterase Large (Negative) H 09/18/18 05:14 Urine RBC 4 /hpf (0-5) 09/18/18 05:14 Urine WBC 62 /hpf (0-5) H 09/18/18 05:14 Ur Squamous Epith Cells <1 /hpf (0-4) 09/18/18 05:14 Ur Renal Epithelial Cell <1 /hpf (0) 09/18/18 05:14 Urine Bacteria Few /hpf (None) H 09/18/18 05:14 Urine Mucus Rare /hpf (None) H 09/18/18 05:14 Thrombosis Risk Factor Assmnt - DVT/VTE Prophylaxis DVT/VTE Prophylaxis: Pharmacologic Prophylaxis ordered, Low risk, early ambulation encouraged - Choose All That Apply Any of the Below Risk Factors Present?: Yes Other Risk Factors: Yes Each Risk Factor Represents 2 Points: Malignancy Each Risk Factor Represents 3 Points: Age 75 years or older Other congenital or acquired thrombophilia - If yes, enter type in comment: No Thrombosis Risk Factor Assessment Total Risk Factor Score: 5 Thrombosis Risk Factor Assessment Level: High Risk Assessment and Plan Plan: 1. Weakness related to acute urinary tract symptoms with urinary tract infection,patient would be started on IV Levaquin, has drug ALLERGIES to cefuroxime and Bactrim,, drug reactions are not quite noted yet, he would inquire this further. Cultures has been sent both blood and urine 2. Impaired mobility with falls, on Coumadin long-term, patient was seen by physical therapy, continue Coumadin, we would readdress safety measures on maintaining Coumadin the next few days. Fall precautions, check TSH and magnesium CPK 3. Hyponatremia, mild IV fluids at 0.9, most likely secondary to poor oral intake 4. History of atrial flutter atrial fibrillation paroxysmal, on Coumadin, continue on metoprolol Diabetes mellitus type 2, on Prandin 0.5 mg 3 times a day with parameters, 5. Osteoporosis on maintenance Fosamax every 6. History of breast cancer on maintenance Demadex 1 mg every dinner time 7 Hypertension on lisinopril 10 mg daily, currently normotensive, we would monitor for orthostatics, hold Dyazide at this time until fluid status are stabilized 8 hyperlipidemia on Pravachol , monitor for CPKs evaluate for early rhabdo 9 DVT prophylaxis, on maintenance Coumadin at home 2.5 mg daily , subtherapeutic on admission GI prophylaxis, Pepcid
[2018-09-18] MEDS ORDERED: WARFARIN 5 MG TAB PO ONE (19:30)
[2018-09-18] MEDS: LEVOFLOXACIN 500MG-D5W PMX 500 MG in DEXTROSE/WATER 1 100ML.BAG IVPB SCH (20:42)
[2018-09-18] MEDS: PRAVASTATIN SODIUM 40 MG TAB PO SCH (20:43)
[2018-09-18] MEDS: metFORMIN 500 MG TAB PO SCH (20:47)
[2018-09-18 20:55] LABS: Glucose,Whole Blood 255 mg/dL (75-99)
[2018-09-18] MEDS: INSULIN ASPART (NovoLOG) 100 UNIT/ML VIAL SQ SCH (21:09)
[2018-09-19 07:16] LABS: Glucose,Whole Blood 156 mg/dL (75-99)
[2018-09-19] MEDS: INSULIN ASPART (NovoLOG) 100 UNIT/ML VIAL SQ SCH ×4 (08:22→20:32)
[2018-09-19] MEDS: LORATADINE 10 MG TAB PO SCH (08:23)
[2018-09-19] MEDS: REPAGLINIDE 1 MG TAB PO SCH ×3 (08:23→18:16)
[2018-09-19] MEDS: metFORMIN 500 MG TAB PO SCH ×3 (08:23→20:32)
[2018-09-19] MEDS: METOPROLOL SUCCINATE (ER) 25 MG TAB.ER.24H PO SCH (08:23)
[2018-09-19] MEDS: ISOSORBIDE MONONITRATE ER 30 MG TAB.ER.24H PO SCH (08:23)
[2018-09-19] MEDS: LISINOPRIL 10 MG TAB PO SCH (08:23)
[2018-09-19] MEDS: LINAGLIPTIN 5 MG TABLET PO SCH (08:23)
[2018-09-19 10:53] VITALS: BMI 25.0
[2018-09-19 11:29] LABS: Basophils % (A) 0 %; Eosinophils # (A) 0.1 k/uL (0-0.7); Eosinophils % (A) 1 %; HCT 35.9 % (34.0-46.0); Lymphocytes % (A) 12 %; MCH 27.9 pg (25.0-35.0); MCHC 33.2 g/dL (31.0-37.0); MCV 83.8 fL (80.0-100.0); Mean Platelet Volume 8.9; Monocytes # (A) 0.5 k/uL (0-1.0); Monocytes % (A) 6 %; Neutrophils # (A) 6.8 k/uL (1.3-7.7); Neutrophils % (A) 81 %; Platelet Count 161 k/uL (150-450); RBC 4.29 m/uL (3.80-5.40); WBC 8.5 k/uL (3.8-10.6)
[2018-09-19 11:38] LABS: INR 1.5 (<1.2); Prothrombin Time 15.1 sec (9.0-12.0)
[2018-09-19 11:43] LABS: African American GFR (CKD) >90 (>60 ml/min/1.73 sqM); Anion Gap 10 mmol/L; Blood Urea Nitrogen 21 mg/dL (7-17); Calcium 8.3 mg/dL (8.4-10.2); Carbon Dioxide 26 mmol/L (22-30); Chloride 95 mmol/L (98-107); Creatine Kinase 118 U/L (30-135); Glucose 205 mg/dL (74-99); Potassium 3.5 mmol/L (3.5-5.1); Sodium 131 mmol/L (137-145)
[2018-09-19 12:07] LABS: Glucose,Whole Blood 207 mg/dL (75-99)
[2018-09-19 17:20] LABS: Hemoglobin A1C 6.7 % (4.0-6.0)
[2018-09-19 17:24] LABS: Glucose,Whole Blood 196 mg/dL (75-99)
[2018-09-19] MEDS ORDERED: ANASTROZOLE 1 MG TAB PO SCH (17:30)
[2018-09-19] MEDS ORDERED: WARFARIN 3 MG TAB PO ONE (18:00)
[2018-09-19] MEDS: LEVOFLOXACIN 500MG-D5W PMX 500 MG in DEXTROSE/WATER 1 100ML.BAG IVPB SCH (18:18)
[2018-09-19 20:30] LABS: Glucose,Whole Blood 199 mg/dL (75-99)
[2018-09-19] MEDS: PRAVASTATIN SODIUM 40 MG TAB PO SCH (20:32)
[2018-09-20 06:06] VITALS: BP 154/69; PULSE 75; RESP 20; TEMP 97.4
[2018-09-20 07:02] LABS: Glucose,Whole Blood 166 mg/dL (75-99)
[2018-09-20] MEDS: REPAGLINIDE 1 MG TAB PO SCH ×2 (07:05→12:21)
[2018-09-20] MEDS: INSULIN ASPART (NovoLOG) 100 UNIT/ML VIAL SQ SCH ×2 (07:06→12:21)
[2018-09-20] MEDS: ISOSORBIDE MONONITRATE ER 30 MG TAB.ER.24H PO SCH (07:06)
[2018-09-20] MEDS: metFORMIN 500 MG TAB PO SCH ×2 (07:07→07:08)
[2018-09-20] MEDS: METOPROLOL SUCCINATE (ER) 25 MG TAB.ER.24H PO SCH (07:07)
[2018-09-20] MEDS: LINAGLIPTIN 5 MG TABLET PO SCH (07:07)
[2018-09-20] MEDS: LORATADINE 10 MG TAB PO SCH (07:07)
[2018-09-20] MEDS: LISINOPRIL 10 MG TAB PO SCH (07:07)
--- NOTE | 2018-09-20 09:02 | P.PN ---
Subjective Progress Note Date: 09/19/18 this is an 88-year-old pleasant lady patient of Dr. Griffin. She has underlying history of hypertension and breast cancer him a diabetes mellitus type 2,on long-term Coumadin for anticoagulation and atrial fibrillation, admitted to emergency room after a fall at home. Patient was walking with her ability to walk her, heading to the bathroom, and attempting to sit down,has symptoms of nausea and urinary frequency for approximately one week. Patient on lean forward, however she lost her balance and fell forward. Patient with tip the right side of her ribs, elevated the right side of her arm and right side of her hip, was subsequently seen in the emergency room secondary to pain, she also notes increasing urinary frequency, urinary discomfort, some nausea, no loss of consciousness, no hematuria, patient has foul-smelling urine. Patient denies any fever, no flank pain prior to the fall, patient denies any prior history of drug resistance Emergency room, she was evaluated for her falls, x-rays of the rib cage, hips, and ankles were negative for fracture, she was found to have urinary tract infection, and was started on IV Levaquin, based on her ALLERGIES to Ceftin, and Bactrim cultures has been sentpatient will be monitored for orthostatics prior to discharge, patient is fall risk, physical therapist to see the patient Coumadin is sub-Therapeutic upon admission, patient lives alone 09/19: Patient states she ambulated well this morning and feels her strength is improving. She denied having any lightheadedness or dizziness. Patient currently lives alone and has [facility] in place. Repeat INR is 1.5. Coumadin being dosed by pharmacy. Sodium is 131, potassium 3.5, chloride 95, CO2 26, BUN 21 creatinine 7.52. Blood sugar running between 205 and 166. TSH was 0.752. Hemoglobin A1c 6.7. Urine culture is showing gram-negative bacilli. She is currently on Levaquin due to multiple ALLERGIES. Anticipate patient will be ready for discharge tomorrow. Objective - Vital Signs Vital signs: Vital Signs Temp 97.9 F 09/19/18 05:00 Pulse 71 09/19/18 05:00 Resp 18 09/19/18 08:00 BP 137/64 09/19/18 05:00 Pulse Ox 98 09/19/18 05:00 Intake & Output 09/18/18 09/19/18 09/19/18 18:59 06:59 18:59 Weight 63.957 kg Other: Voiding Method Diaper Diaper Incontinent Incontinent # Voids 2 3 - Exam Review of Systems Constitutional: Reports anorexia, Reports lethargyimproving, Reports levi iseimproving, Reports poor appetiteimproving, Reports weakness Ears, nose, mouth and throat: Reports as per HPI, Denies ant. neck pain, Denies bleeding gums, Denies dental pain, Denies dysphagia, Denies epistaxis, Denies headache, Denies hoarseness, Denies mouth pain, Denies nasal congestion, Denies nasal discharge, Denies neck fullness/pressure, Denies neck lump, Denies nose pain, Denies odynophagia, Denies post-nasal drip, Denies sinus pain, Denies sinus pressure, Denies swelling in mouth, Denies swelling in throat, Denies sore throat, Denies vertigo, Denies voice changes Cardiovascular: Reports as per HPI, Denies chest pain, Denies claudication, Denies decreased exercise tolerance, Denies dyspnea on exertion, Denies edema, Denies high blood pressure, Denies irregular heart beat, Denies leg edema, Denies lightheadedness, Denies orthopnea, Denies palpitations, Denies paroxysmal nocturnal dyspnea, Denies phlebitis, Denies rapid heart beat, Denies shortness of breath, Denies syncope Respiratory: Reports as per HPI Gastrointestinal: Reports as per HPI Genitourinary: Reports as per HPI, Reports dysuria, Reports urge incontinence, Reports urgency, Reports urinary frequency, Denies abnormal vaginal bleeding, Denies decreased libido, Denies difficulty conceiving, Denies difficulty voiding, Denies dysmenorrhea, Denies dyspareunia, Denies flank pain, Denies g enital sores, Denies hematuria, Denies hot flashes, Denies incomplete emptying, Denies kidney stones, Denies menorrhagia, Denies mixed incontinence, Denies nocturia, Denies pelvic pain, Denies post void dribbling, Denies , Denies prolapse symptoms, Denies stress incontinence, Denies vaginal discharge, Denies vaginal dryness, Denies vaginal itching, Denies vaginal odor Menstruation: Reports as per HPI Musculoskeletal: Reports as per HPI, Reports frequent falls, Reports gait dysfunction, Reports limitation of motion, Reports low back pain, Reports muscle weakness, Denies arm numbness/tingling, Denies atrophy, Denies fractures, Denies hot joints, Denies leg numbness/tingling, Denies loss of height, Denies morning stiffness, Denies muscle cramps, Denies myalgias, Denies neck pain, Denies neck stiffness, Denies prior amputations, Denies redness of joints, Denies shooting arm pain, Denies shooting leg pain Integumentary: Reports as per HPI Neurological: Reports as per HPI, Reports gait dysfunction, Reports hearing difficulties, Reports weakness, Denies aphasia, Denies ataxia, Denies balance difficulties, Denies burning pain, Denies change in mentation, Denies change in smell/taste, Denies change in speech, Denies confusion, Denies convulsions, Denies double vision, Denies head injury, Denies headaches, Denies lack of coordination, Denies loss of vision, Denies memory loss, Denies migraines, Denies motor disturbance, Denies numbness, Denies paralysis, Denies paresthesias, Denies seizures, Denies sensory deficit, Denies spasticity, Denies syncope, Denies tic, Denies tingling, Denies transient paralysis, Denies tremors, Denies vertigo, Denies visual changes Psychiatric: Reports as per HPI, Reports insomnia, Denies anhedonia, Denies anxiety, Denies anxiety attacks, Denies change in appetite, Denies change in libido, Denies change in sleep habits, Denies confusion, Denies depression, Denies difficulty concentrating, Denies disorientation, Denies hallucinations, Denies hopelessness, Denies hypersomnia, Denies irritability, Denies memory loss, Denies mood swings, Denies paranoia, Denies sadness/tearfulness, Denies sleep disturbances, Denies suicidal ideation Endocrine: Reports as per HPI, Denies cold intolerance, Denies deepening of the voice, Denies excessive sweating, Denies excessive thirst, Denies fatigue, Den ies flushing, Denies heat intolerance, Denies high blood sugars, Denies increase in ring/shoe/hat size, Denies low blood sugars, Denies nocturia, Denies palpitations, Denies polydipsia, Denies polyphagia, Denies polyuria, Denies proptosis, Denies recent glucocorticoid use, Denies thyroid mass, Denies weight change Hematologic/Lymphatic: Reports as per HPI, Denies easy bleeding, Denies easy bruising, Denies lymphadenopathy, Denies lymphedema, Denies thrombophilia Allergic/Immunologic: Reports as per HPI, Denies allergic rhinitis, Denies anaphylaxis, Denies angioedema, Denies gluten intolerance, Denies persistent infections, Denies seasonal allergies, Denies urticaria, Denies wheezing Physical exam: - Constitutional General appearance: average body habitus, cooperative, patient is in bed and appears be comfortable and in no acute distress.- EENT Eyes: anicteric sclerae, EOMI, dentition normal, normal appearance ENT: hard of hearing, NA/AT, normal oropharynx - Neck Neck: normal ROM - Respiratory Respiratory: bilateral: CTA, negative: diminished, dullness, rales, wheezing - Cardiovascular Heart sounds: normal: S2, abnormal: S1 Abnormal Heart Sounds: systolic murmur - Gastrointestinal General gastrointestinal: decreased bowel sounds, hyperactive bowel sounds, normal bowel sounds - Integumentary Integumentary: decreased turgor, normal - Neurologic Neurologic: CNII-XII intact - Musculoskeletal Musculoskeletal: gait normal, strength equal bilaterally - Psychiatric Psychiatric: A&O x's 3, appropriate affect, intact judgment & insight - Labs CBC & Chem 7: 09/19/18 09:46 09/19/18 09:46 Labs: Abnormal Lab Results - Last 24 Hours (Table) 09/18/18 09/19/18 09/19/18 Range/Units 20:54 07:14 09:46 PT 15.1 H (9.0-12.0) sec INR 1.5 H (<1.2) Sodium (137-145) mmol/L Chloride (98-107) mmol/L BUN (7-17) mg/dL Glucose (74-99) mg/dL POC Glucose (mg/dL) 255 H 156 H (75-99) mg/dL Calcium (8.4-10.2) mg/dL 09/19/18 09/19/18 Range/Units 09:46 12:06 PT (9.0-12.0) sec INR (<1.2) Sodium 131 L (137-145) mmol/L Chloride 95 L (98-107) mmol/L BUN 21 H (7-17) mg/dL Glucose 205 H (74-99) mg/dL POC Glucose (mg/dL) 207 H (75-99) mg/dL Calcium 8.3 L (8.4-10.2) mg/dL Microbiology - Last 24 Hours (Table) 09/18/18 05:14 Urine Culture - Preliminary Urine,Clean Catch Gram Neg Bacilli Assessment and Plan Plan: 1. Weakness related to acute urinary tract symptoms with urinary tract infection,patient would be started on IV Levaquin, has drug ALLERGIES to cefuroxime and Bactrim,, drug reactions are not quite noted yet, he would inquire this further. Cultures has been sent both blood and urine 2. Impaired mobility with falls, on Coumadin long-term, patient was seen by physical therapy, continue Coumadin, we would readdress safety measures on maintaining Coumadin the next few days. Fall precautions, check TSH and magnesium CPK 3. Hyponatremia, mild IV fluids at 0.9, most likely secondary to poor oral intake 4. History of atrial flutter atrial fibrillation paroxysmal, on Coumadin, continue on metoprolol 5. Diabetes mellitus type 2, on Prandin 0.5 mg 3 times a day with parameters, 6. Osteoporosis on maintenance Fosamax every 7. History of breast cancer on maintenance Demadex 1 mg every dinner time 8. Hypertension on lisinopril 10 mg daily, currently normotensive, we would monitor for orthostatics, hold Dyazide at this time until fluid status are stabilized 9. Hyperlipidemia on Pravachol , monitor for CPKs evaluate for early rhabdo 10. DVT prophylaxis, on maintenance Coumadin at home 2.5 mg daily , subtherapeutic on admission 11. GI prophylaxis, Pepcid Discharge plan: Most likely return home. Patient lives in a senior apartment complex. Impression and plan of care have been directed as dictated by the signing physician. Shante Thompson nurse practitioner acting as scribe for signing barbra cagle.
[2018-09-20 10:08] LABS: Basophils % (A) 0 %; Eosinophils # (A) 0.1 k/uL (0-0.7); Eosinophils % (A) 1 %; HCT 34.3 % (34.0-46.0); HGB 11.1 gm/dL (11.4-16.0); Lymphocytes # (A) 1.2 k/uL (1.0-4.8); Lymphocytes % (A) 13 %; MCH 27.6 pg (25.0-35.0); MCHC 32.4 g/dL (31.0-37.0); MCV 85.2 fL (80.0-100.0); Mean Platelet Volume 8.3; Monocytes # (A) 0.7 k/uL (0-1.0); Monocytes % (A) 8 %; Neutrophils # (A) 6.8 k/uL (1.3-7.7); Neutrophils % (A) 76 %; Platelet Count 156 k/uL (150-450); RBC 4.02 m/uL (3.80-5.40); RDW 14.2 % (11.5-15.5)
[2018-09-20 10:12] LABS: INR 1.9 (<1.2); Prothrombin Time 18.9 sec (9.0-12.0)
[2018-09-20 10:18] LABS: African American GFR (CKD) >90 (>60 ml/min/1.73 sqM); Anion Gap 4 mmol/L; Blood Urea Nitrogen 21 mg/dL (7-17); Calcium 8.1 mg/dL (8.4-10.2); Carbon Dioxide 30 mmol/L (22-30); Chloride 97 mmol/L (98-107); Glucose 208 mg/dL (74-99); Potassium 3.5 mmol/L (3.5-5.1); Sodium 131 mmol/L (137-145)
[2018-09-20 11:42] LABS: Glucose,Whole Blood 185 mg/dL (75-99)
--- NOTE | 2018-09-20 13:05 | P.DS ---
Providers Date of admission: 09/18/18 06:40 Expected date of discharge: 09/20/18 Attending physician: Al Morales [facility] Course: This is an 88-year-old pleasant lady patient of Dr. Griffin. She has underlying history of hypertension and breast cancer him a diabetes mellitus type 2,on long-term Coumadin for anticoagulation and atrial fibrillation, admitted to emergency room after a fall at home. Patient was walking with her ability to walk her, heading to the bathroom, and attempting to sit down,has symptoms of nausea and urinary frequency for approximately one week. Patient on lean forward, however she lost her balance and fell forward. Patient with tip the right side of her ribs, elevated the right side of her arm and right side of her hip, was subsequently seen in the emergency room secondary to pain, she also notes increasing urinary frequency, urinary discomfort, some nausea, no loss of consciousness, no hematuria, patient has foul-smelling urine. Patient denies any fever, no flank pain prior to the fall, patient denies any prior history of drug resistance Emergency room, she was evaluated for her falls, x-rays of the rib cage, hips, and ankles were negative for fracture, she was found to have urinary tract infection, and was started on IV Levaquin, based on her ALLERGIES to Ceftin, and Bactrim cultures has been sentpatient will be monitored for orthostatics prior to discharge, patient is fall risk, physical therapist to see the patient Coumadin is sub-Therapeutic upon admission, patient lives alone 09/19: Patient states she ambulated well this morning and feels her strength is improving. She denied having any lightheadedness or dizziness. Patient currently lives alone and has [facility] in place. Repeat INR is 1.5. Coumadin being dosed by pharmacy. Sodium is 131, potassium 3.5, chloride 95, CO2 26, BUN 21 creatinine 7.52. Blood sugar running between 205 and 166. TSH was 0.752. Hemoglobin A1c 6.7. Urine culture is showing gram-negative bacilli. She is currently on Levaquin due to multiple ALLERGIES. Anticipate patient will be ready for discharge tomorrow. 09/20: Urine culture reveals Klebsiella pneumoniae. Patient will be discharged home on doxycycline for 8 more days. Repeat lab work reveals white count is 8, INR 1.9, sodium 131, potassium 3.5, chloride 97, CO2 30, BUN 21 and creatinine 0.57. Blood sugars are running between 166 and 208. Patient remains afebrile, blood pressure 154/69, pulse ox 96% on room air, heart rate 75. Patient states that she doesn't have transportation home and nursing will make arrangements for A ride home today. Patient will be discharged home today in stable condition. Discharge diagnoses: 1. Weakness related to acute urinary tract symptoms with urinary tract infection 2. Impaired mobility with falls 3. Hyponatremia, mild 4. History of atrial flutter atrial fibrillation paroxysmal 5. Diabetes mellitus type 2 6. Osteoporosis 7. History of breast cancer 8. Hypertension 9. Hyperlipidemia Discharge plan: Home with [facility]NA. Patient lives in a senior apartment complex. Impression and plan of care have been directed as dictated by the signing physician. Shante Thompson nurse practitioner acting as scribe for signing physician. Patient Condition at Discharge: Good Plan - Discharge Summary Discharge Rx Participant: No New Discharge Prescriptions: New Doxycycline Hyclate 100 mg PO BID #16 tab Continue Warfarin [Coumadin] 2.5 mg PO HS Pravastatin Sodium [Pravachol] 40 mg PO HS Fish Oil/Dha/Epa [Fish Oil 1,200 mg Fish Oil] 1 cap PO BID Repaglinide [Prandin] 0.5 mg PO TID Multivit-Min/FA/Lycopene/Lut [Centrum Silver Tablet] 1 tab PO Q48H metFORMIN HCL [Glucophage] 500 mg PO BID Cetirizine HCl [Zyrtec] 10 mg PO DAILY Acetaminophen Tab [Tylenol] 500 mg PO Q6HR PRN PRN Reason: Pain Alendronate Sodium [Fosamax] 70 mg PO TH Nitroglycerin Sl Tabs [Nitrostat] 0.4 mg SUBLINGUAL Q5M PRN PRN Reason: Chest Pain Metoprolol Succinate (ER) [Toprol XL] 25 mg PO DAILY Isosorbide Mononitrate ER [Imdur] 30 mg PO DAILY Calcium Citrate 250 mg PO BID Anastrozole [Arimidex] 1 mg PO W/SUPPER Lisinopril [Zestril] 10 mg PO DAILY Cranberry Fruit Extract [Cranberry] 200 mg PO DAILY sitaGLIPtin PHOSPHATE [Januvia] 50 mg PO DAILY Discontinued Triamterene/Hydrochlorothiazid [Dyazide 37.5-25 Capsule] 1 cap PO DAILY@1600 Discharge Medication List Fish Oil/Dha/Epa [Fish Oil 1,200 mg Fish Oil] 1 cap PO BID 11/21/14 [History] Multivit-Min/FA/Lycopene/Lut [Centrum Silver Tablet] 1 tab PO Q48H 11/21/14 [History] Pravastatin Sodium [Pravachol] 40 mg PO HS 11/21/14 [History] Repaglinide [Prandin] 0.5 mg PO TID 11/21/14 [History] Warfarin [Coumadin] 2.5 mg PO HS 11/21/14 [History] metFORMIN HCL [Glucophage] 500 mg PO BID 12/08/16 [History] Acetaminophen Tab [Tylenol] 500 mg PO Q6HR PRN 02/18/18 [History] Alendronate Sodium [Fosamax] 70 mg PO TH 02/18/18 [History] Anastrozole [Arimidex] 1 mg PO W/SUPPER 02/18/18 [History] Calcium Citrate 250 mg PO BID 02/18/18 [History] Cetirizine HCl [Zyrtec] 10 mg PO DAILY 02/18/18 [History] Cranberry Fruit Extract [Cranberry] 200 mg PO DAILY 02/18/18 [History] Isosorbide Mononitrate ER [Imdur] 30 mg PO DAILY 02/18/18 [History] Lisinopril [Zestril] 10 mg PO DAILY 02/18/18 [History] Metoprolol Succinate (ER) [Toprol XL] 25 mg PO DAILY 02/18/18 [History] Nitroglycerin Sl Tabs [Nitrostat] 0.4 mg SUBLINGUAL Q5M PRN 02/18/18 [History] sitaGLIPtin PHOSPHATE [Januvia] 50 mg PO DAILY 09/18/18 [History] Doxycycline Hyclate 100 mg PO BID #16 tab 09/20/18 [Rx] Follow up Appointment(s)/Referral(s): Godfrey Griffin MD [Primary Care Provider] - 1 Week [facility] Visiting Nurse, [NON-STAFF] -
[2018-09-20] MEDS ORDERED: DOXYCYCLINE 100 MG CAP PO STA (14:04)
[2018-09-20] MEDS ORDERED: WARFARIN 3 MG TAB PO ONE (18:00)
[2018-09-20] MEDS ORDERED: LEVOFLOXACIN 500 MG TAB PO SCH (19:00)
[2018-09-21] MEDS ORDERED: NON-FORMULARY DRUG (Alendronate Sodium [Fosamax] 70 MG) PO SCH (09:00)
== END 2018-09-20 14:17 | disposition home health service (06) ==
LOC: EC 03:53 → 4MS4W 06:40
PROVIDERS: ADMIT Internal Medicine; ATTEND Internal Medicine
DX: N39.0 Urinary tract infection, site not specified (principal); R11.0 Nausea; R79.1 Abnormal coagulation profile; I10 Essential (primary) hypertension; R26.9 Unspecified abnormalities of gait and mobility; E87.1 Hypo-osmolality and hyponatremia; E11.9 Type 2 diabetes mellitus without complications; B96.89 Other specified bacterial agents as the cause of diseases classified elsewhere; B96.1 Klebsiella pneumoniae [K. pneumoniae] as the cause of diseases classified elsewhere; I48.0 Paroxysmal atrial fibrillation; I48.92 Unspecified atrial flutter; M81.0 Age-related osteoporosis without current pathological fracture; E78.5 Hyperlipidemia, unspecified; M25.571 Pain in right ankle and joints of right foot; M25.551 Pain in right hip; R07.81 Pleurodynia; I25.10 Atherosclerotic heart disease of native coronary artery without angina pectoris; Z85.3 Personal history of malignant neoplasm of breast; Z92.21 Personal history of antineoplastic chemotherapy; Z91.81 History of falling; Z79.899 Other long term (current) drug therapy; W18.30XA Fall on same level, unspecified, initial encounter; Y92.002 Bathroom of unspecified non-institutional (private) residence as the place of occurrence of the external cause; Z79.01 Long term (current) use of anticoagulants; Z79.84 Long term (current) use of oral hypoglycemic drugs; Z79.83 Long term (current) use of bisphosphonates; Z88.2 Allergy status to sulfonamides; Z88.1 Allergy status to other antibiotic agents; Z88.8 Allergy status to other drugs, medicaments and biological substances; Z91.040 Latex allergy status; Z91.013 Allergy to seafood; Z97.0 Presence of artificial eye; Z82.49 Family history of ischemic heart disease and other diseases of the circulatory system; Z82.61 Family history of arthritis; Z84.1 Family history of disorders of kidney and ureter; Z81.8 Family history of other mental and behavioral disorders
CPT/HCPCS: 96365; 96366; 96361; 99285; 36415; 97162; 80048 ×3; 84443; 82550; 83735; 85025 ×3; 85610 ×3; 85730; 81001; 87086; 87077; 87186; 83036; 71101; 73502; 73610; G0378 ×3; J1956 ×2; S0170

== ENCOUNTER → 2018-12-07 | Outpatient (CLI) | payer MEDICARE, OTHER ==
--- NOTE | 2018-12-07 14:16 | BD ---
EXAMINATION TYPE: Axial Bone Density DATE OF EXAM: 12/07/2018 COMPARISON: 11/30/2016 CLINICAL HISTORY: M 82.0 Height: 63 Weight: 136 FRAX RISK QUESTIONS: Alcohol (3 or more units per day): no Family History (Parent hip fracture): no Glucocorticoids (More than 3mos): no (Ex: prednisone, prednisolone, methylprednisolone, dexamethasone, and hydrocortisone). History of Fracture in Adulthood: yes Secondary Osteoporosis: 1. Type 1 Diabetes: no 2. Hyperthyroidism: no 3. Menopause before 45: hysterectomy age 46 4. Malnutrition: no 5. Chronic liver disease: no Rheumatoid Arthritis: no Current Tobacco Use: no RISK FACTORS HISTORY OF: Hip Fracture (Left): yes When: age 75 Surgery to Hip(left): yes When: age 75 Family History of Osteoporosis: unsure Active: somewhat, uses walker Diet low in dairy products/other sources of calcium: at least one serving a day, or more Postmenopausal woman: yes Take estrogen and/or progesterone medications: not now How long: age [age] Lost more than 2 inches in height since high school: no, states height was once about 65 inches Frequent falls: not as a rule, fell this summer after a "blackout" Poor Health: fragile Hyperparathyroidism: no Adrenal Insufficiency: no MEDICATIONS: Prednisone or other steroids: no Thyroid Medications: no Osteoporosis Medications: yes Which medication: Fosamax How Long: over a year at least Additional Medications: meds for Diabetes ; blood pressure med, cholesterol med; Arimidex Additional History: Type 2 Diabetes; breast CA; bladder infection this summer EXAM MEASUREMENTS: Bone mineral densitometry was performed using the [employer] System. Bone mineral density as measured about the Lumbar spine is: ----- L1-L4(G/cm2): 1.150 T Score Values are as follows: ----- L2: -0.3 ----- L3: 0.1 ----- L4: -0.2 ----- L1-L4: -0.2 Bone mineral density has: Increased 3.5% since study of: 11/30/2016 Bone mineral density about the R hip (g/cm2): 0.763 T Score values are as follows: -----R Neck: -2.0 -----R Total: -1.8 Bone mineral density has: Increased 3.3% since study of: 11/30/2016 IMPRESSION: Osteopenia (T Score between -2.5 and -1). There is slightly increased risk of fracture and the patient may be considered for treatment. Re-Screen 2-5 years. NOTE: T-SCORE=SD OF THE YOUNG ADULT MEAN.
== END | disposition home or self-care (01) ==
LOC: RADBDWWP 10:13
PROVIDERS: ATTEND Internal Medicine Geriatric Medicine
DX: M85.88 Other specified disorders of bone density and structure, other site (principal)
CPT/HCPCS: 77080

== ENCOUNTER → 2019-10-23 | Outpatient (CLI) | payer MEDICARE, OTHER ==
--- NOTE | 2019-10-23 15:33 | XR ---
Right hip HISTORY: Right hip pain 2 views of the right hip Comparison with Previous exam 09/18/2018 Bone mineralization is reduced. There is no fracture or dislocation. Alignment is stable. Probable va scular calcifications noted incidentally. Appearance is unchanged IMPRESSION: Stable right hip, no acute findings. Hip MRI may be of benefit.
== END | disposition home or self-care (01) ==
LOC: RADXRMAIN 10:42
PROVIDERS: ATTEND Internal Medicine Geriatric Medicine
DX: M25.551 Pain in right hip (principal)
CPT/HCPCS: 73502

== ENCOUNTER → 2019-12-06 | Outpatient (CLI) | payer MEDICARE, OTHER ==
--- NOTE | 2019-12-06 12:04 | XR ---
EXAMINATION TYPE: XR femur bilateral, XR tibia fibula bilateral DATE OF EXAM: 12/06/2019 CLINICAL HISTORY: Osteopenia per order. Severe left-sided pain when standing per patient. TECHNIQUE: Two views of the bilateral legs and femurs are obtained. COMPARISON: None FINDINGS: Osseous structures are demineralized. Metallic hardware from left hip arthroplasty is [employer] in position. Mild to moderate axial joint space loss and right hip with mild acetabular spurr ing. Bilateral knees show mild/moderate tricompartment joint space loss. There is spurring from the a nterior superior patella bilaterally. No acute fracture is evident. Bilateral legs show demineralization without acute fracture or dislocation. Ankle mortise symmetry is fairly well preserved bilaterally. Mild to moderate diffuse symmetric subcutaneous edema is noted. IMPRESSION: As above.
== END | disposition home or self-care (01) ==
LOC: RADXRMAIN 10:35
PROVIDERS: ATTEND Internal Medicine Hematology & Oncology
DX: M25.762 Osteophyte, left knee (principal); M25.761 Osteophyte, right knee; M79.89 Other specified soft tissue disorders; C50.412 Malignant neoplasm of upper-outer quadrant of left female breast; Z96.642 Presence of left artificial hip joint

== ENCOUNTER → 2019-12-24 | Outpatient (CLI) | payer MEDICARE, OTHER ==
--- NOTE | 2019-12-24 14:49 | XR ---
EXAMINATION TYPE: XR lumbar spine 2 or 3V DATE OF EXAM: 12/24/2019 CLINICAL HISTORY: pain TECHNIQUE: Three views of the lumbar spine are submitted. COMPARISON: None. FINDINGS: Rotoscoliosis convex to the right. Severe multilevel degenerative disc disease with endplate sclerosi s and ventral spondylosis. Severe facet joint arthropathy. No compression fracture. IMPRESSION: No acute fracture or dislocation is seen in the lumbar spine. ICD 10 NO FRACTURE, INITIAL EVALUATION
== END | disposition home or self-care (01) ==
LOC: RADXRMAIN 14:21
PROVIDERS: ATTEND Internal Medicine Geriatric Medicine
DX: M54.9 Dorsalgia, unspecified (principal)
CPT/HCPCS: 72100

== ENCOUNTER 2020-03-07 22:10 | Emergency (ER) | payer MEDICARE, OTHER ==
--- NOTE | 2020-03-07 22:31 | ED ---
Neuro HPI - General Chief Complaint: Weakness Stated Complaint: tingling in hands Time Seen by Provider: 03/07/20 22:17 Source: EMS Mode of arrival: EMS Limitations: no limitations - History of Present Illness Is the patient presenting with stroke symptoms?: Yes Last Known Well Date: 03/07/20 Last Known Well Time: 20:00 -: hour(s) Initial Comments: Patient is an 89-year-old woman who noted around 8 PM that it was difficult for her to walk. She states that her left leg didn't seem to be responding as normal. She states it felt heavy and she was having a hard time even when she was attempting to use her walker. She also noted some left arm weakness and numbness though not as bad as in the left leg. When the symptoms did not resolve she called EMS to see if she was having a stroke and they transferred her here. Patient denies any other neurologic symptoms. No head or neck pain. No head trauma. No fever or chills. No chest pain or dyspnea. No change in bladder or bowel function. Location: left arm, left leg History of same: Yes Place: home Severity: mild Quality: weak, numb Improves With: none Worsens With: none On Anticoagulants: Yes Context: sudden onset Associated Symptoms: denies other symptoms Treatments Prior to Arrival: none - Related Data Home Medications: Home Medications Medication Instructions Recorded Confirmed Fish Oil/Dha/Epa [Fish Oil 1,200 1 cap PO BID 11/21/14 09/18/18 mg Fish Oil] Multivit-Min/FA/Lycopene/Lut 1 tab PO Q48H 11/21/14 09/18/18 [Centrum Silver Tablet] Pravastatin Sodium [Pravachol] 40 mg PO HS 11/21/14 09/18/18 Repaglinide [Prandin] 0.5 mg PO TID 11/21/14 09/18/18 Warfarin [Coumadin] 2.5 mg PO HS 11/21/14 09/18/18 metFORMIN HCL [Glucophage] 500 mg PO BID 12/08/16 09/18/18 Acetaminophen Tab [Tylenol] 500 mg PO Q6HR PRN 02/18/18 09/18/18 Alendronate Sodium [Fosamax] 70 mg PO TH 02/18/18 09/18/18 Anastrozole [Arimidex] 1 mg PO W/SUPPER 02/18/18 09/18/18 Calcium Citrate 250 mg PO BID 02/18/18 09/18/18 Cetirizine HCl [Zyrtec] 10 mg PO DAILY 02/18/18 09/18/18 Cranberry Fruit Extract [Cranberry] 200 mg PO DAILY 02/18/18 09/18/18 Isosorbide Mononitrate ER [Imdur] 30 mg PO DAILY 02/18/18 09/18/18 Metoprolol Succinate (ER) [Toprol 25 mg PO DAILY 02/18/18 09/18/18 XL] Nitroglycerin Sl Tabs [Nitrostat] 0.4 mg SUBLINGUAL Q5M PRN 02/18/18 09/18/18 lisinopriL [Zestril] 10 mg PO DAILY 02/18/18 09/18/18 sitaGLIPtin PHOSPHATE [Januvia] 50 mg PO DAILY 09/18/18 09/18/18 Previous Rx's Medication Instructions Recorded Doxycycline Hyclate 100 mg PO BID #16 tab 09/20/18 Allergies/Adverse Reactions: Allergies Allergy/AdvReac Type Severity Reaction Status Date / Time cefuroxime [From Ceftin] Allergy Unknown Verified 03/07/20 22:26 latex Allergy Rash/Hives Verified 03/07/20 22:26 sulfamethoxazole Allergy Unknown Verified 03/07/20 22:26 [From Bactrim] trimethoprim [From Bactrim] Allergy Unknown Verified 03/07/20 22:26 glipizide AdvReac BLOOD Verified 03/07/20 22:26 SUGAR DROP phenazopyridine HCl AdvReac chilled Verified 03/07/20 22:26 [From Pyridium] and fatigued ticlopidine HCl [From Ticlid] AdvReac Diarrhea Verified 03/07/20 22:26 CANNED SALMON Allergy Severe Anaphylaxis Uncoded 03/07/20 22:26 CANNED TUNA Allergy Severe Anaphylaxis Uncoded 03/07/20 22:26 Review of Systems ROS Statement: Those systems with pertinent positive or pertinent negative responses have been documented in the HPI. ROS Other: All systems not noted in ROS Statement are negative. Constitutional: Denies: fever, chills Eyes: Denies: vision change Respiratory: Denies: cough, dyspnea Cardiovascular: Denies: chest pain, palpitations, edema Gastrointestinal: Denies: abdominal pain, vomiting, diarrhea Genitourinary: Denies: dysuria, hematuria Musculoskeletal: Denies: back pain Skin: Denies: rash Neurological: Reports: weakness, numbness. Denies: headache, paresthesias, confusion General Exam Limitations: no limitations General appearance: alert, in no apparent distress Head exam: Present: atraumatic, normocephalic Eye exam: Present: normal appearance. Absent: scleral icterus, conjunctival injection ENT exam: Present: normal oropharynx Neck exam: Present: normal inspection Respiratory exam: Present: normal lung sounds bilaterally. Absent: respiratory distress, wheezes, rales, rhonchi, stridor GI/Abdominal exam: Present: soft. Absent: distended, tenderness, guarding, rebound, rigid Extremities exam: Present: normal inspection, normal capillary refill. Absent: pedal edema, calf tenderness Back exam: Present: normal inspection. Absent: CVA tenderness (R), CVA tenderness (L) Neurological exam: Present: alert, oriented X3, CN II-XII intact, motor sensory deficit Expanded Neurological exam: Present: protecting the airway. Absent: inattentive, memory loss-remote event, memory loss-recent event, ataxia, receptive aphasia, expressive aphasia, total aphasia, tremor Patient oriented to: Present: person, place, time Speech: Present: fluid speech Cranial nerves: EOM's Intact: Normal, Gag Reflex: Normal, Tongue Deviation: Normal Sensory exam: Upper Extremity Light Touch: Normal, Lower Extremity Light Touch: Normal Motor strength exam: RUE: 5, LUE: 4, RLE: 5, LLE: 4 Eye Response: (4) open spontaneously Motor Response: (6) obeys commands Verbal Response: (5) oriented Bill Total: 15 Skin exam: Present: warm, dry, intact, normal color. Absent: rash Stroke MDM - Lab Data Result diagrams: 03/07/20 22:41 03/07/20 22:41 Lab Results 03/07/20 03/07/20 03/07/20 Range/Units 22:33 22:41 22:41 WBC 6.8 (3.8-10.6) k/uL RBC 5.05 (3.80-5.40) m/uL Hgb 13.8 (11.4-16.0) gm/dL Hct 42.9 (34.0-46.0) % MCV 85.0 (80.0-100.0) fL MCH 27.4 (25.0-35.0) pg MCHC 32.2 (31.0-37.0) g/dL RDW 13.6 (11.5-15.5) % Plt Count 161 (150-450) k/uL MPV 8.5 Neutrophils % 65 % Lymphocytes % 24 % Monocytes % 6 % Eosinophils % 3 % Basophils % 1 % Neutrophils # 4.5 (1.3-7.7) k/uL Lymphocytes # 1.6 (1.0-4.8) k/uL Monocytes # 0.4 (0-1.0) k/uL Eosinophils # 0.2 (0-0.7) k/uL Basophils # 0.0 (0-0.2) k/uL PT 10.5 (9.0-12.0) sec INR 1.0 (<1.2) APTT 26.4 (22.0-30.0) sec Sodium (137-145) mmol/L Potassium (3.5-5.1) mmol/L Chloride (98-107) mmol/L Carbon Dioxide (22-30) mmol/L Anion Gap mmol/L BUN (7-17) mg/dL Creatinine (0.52-1.04) mg/dL Est GFR (CKD-EPI)AfAm (>60 ml/min/1.73 sqM) Est GFR (CKD-EPI)NonAf (>60 ml/min/1.73 sqM) Glucose (74-99) mg/dL POC Glucose (mg/dL) 169 H (75-99) mg/dL POC Glu Director Employment ID Magda Nicole Calcium (8.4-10.2) mg/dL Total Bilirubin (0.2-1.3) mg/dL AST (14-36) U/L ALT (4-34) U/L Alkaline Phosphatase (38-126) U/L Troponin I (0.000-0.034) ng/mL Total Protein (6.3-8.2) g/dL Albumin (3.5-5.0) g/dL 03/07/20 03/07/20 Range/Units 22:41 22:41 WBC (3.8-10.6) k/uL RBC (3.80-5.40) m/uL Hgb (11.4-16.0) gm/dL Hct (34.0-46.0) % MCV (80.0-100.0) fL MCH (25.0-35.0) pg MCHC (31.0-37.0) g/dL RDW (11.5-15.5) % Plt Count (150-450) k/uL MPV Neutrophils % % Lymphocytes % % Monocytes % % Eosinophils % % Basophils % % Neutrophils # (1.3-7.7) k/uL Lymphocytes # (1.0-4.8) k/uL Monocytes # (0-1.0) k/uL Eosinophils # (0-0.7) k/uL Basophils # (0-0.2) k/uL PT (9.0-12.0) sec INR (<1.2) APTT (22.0-30.0) sec Sodium 132 L (137-145) mmol/L Potassium 3.8 (3.5-5.1) mmol/L Chloride 97 L (98-107) mmol/L Carbon Dioxide 29 (22-30) mmol/L Anion Gap 6 mmol/L BUN 32 H (7-17) mg/dL Creatinine 0.57 (0.52-1.04) mg/dL Est GFR (CKD-EPI)AfAm >90 (>60 ml/min/1.73 sqM) Est GFR (CKD-EPI)NonAf 83 (>60 ml/min/1.73 sqM) Glucose 181 H (74-99) mg/dL POC Glucose (mg/dL) (75-99) mg/dL POC Glu Director Employment ID Calcium 9.4 (8.4-10.2) mg/dL Total Bilirubin 0.4 (0.2-1.3) mg/dL AST 33 (14-36) U/L ALT 28 (4-34) U/L Alkaline Phosphatase 48 (38-126) U/L Troponin I <0.012 (0.000-0.034) ng/mL Total Protein 7.3 (6.3-8.2) g/dL Albumin 4.2 (3.5-5.0) g/dL - Thrombolytic Inclusion/Exclusion Thrombolytic Contraindications: Risks Outweigh Benefits - Medical Decision Making Patient is an 89-year-old woman presenting with mild acute ischemic stroke. Patient is seen and evaluated by the stroke team using the telemetry system. There treatment recommendations are incorporated. I did discuss the case with Dr. Monk who is covering for her medical physician and as there is no neurology coverage would like the patient transferred to facility with neurology. After discussion with patient she would like to go to the nearest facility which is [facility] and transfer was arranged. - EKG Data -: EKG Interpreted by Me EKG shows normal: sinus rhythm, axis (Normal), intervals (CO interval 218 ms, consistent with a first-degree AV block. QRS duration 96 ms, QTC 477 ms, both normal), QRS complexes (Normal) Rate: normal (Rate 67 bpm) Interpretation: LVH Past Medical History Past Medical History: Atrial Flutter, Coronary Artery Disease (CAD), Cancer, Chest Pain / Angina, Diabetes Mellitus, Eye Disorder, Hyperlipidemia, Hypertension, Osteoarthritis (OA) Additional Past Medical History / Comment(s): Paroxysmal Afib (RVR), NIDDM type II, neuropathy bilateral feet, arthritis mostly in bilateral legs, L eye injury as a child-prosthesis, R breast cancer with mastectomy, TIA, migraines, varicose veins, PAD, bronchitis, sinus problems. History of Any Multi-Drug Resistant Organisms: None Reported Past Surgical History: Adenoidectomy, Appendectomy, Breast Surgery, Hysterectomy, Tonsillectomy Additional Past Surgical History / Comment(s): R eye cataract removal/lens implant, L eye prosthesis, R breast biopsy/mastectomy, R oophorectomy, L hip fracture with hemiarthroplasty. Past Anesthesia/Blood Transfusion Reactions: No Reported Reaction, Postoperative Nausea & Vomiting (PONV) Past Psychological History: No Psychological Hx Reported Smoking Status: Never smoker Past Alcohol Use History: None Reported Past Drug Use History: None Reported - Past Family History Father Family Medical History: Dementia, Myocardial Infarction ([place]) Mother Family Medical History: Renal Disease, Rheumatoid Arthritis (RA) Additional Family Medical History / Comment(s): HEART PROBLEMS Course Vital Signs 03/07/20 03/07/20 03/07/20 22:22 22:30 23:00 Temperature 98 F Pulse Rate 64 68 60 Respiratory 14 18 18 Rate Blood Pressure 244/83 241/78 176/68 O2 Sat by Pulse 96 98 99 Oximetry 03/07/20 03/08/20 03/08/20 23:30 00:00 00:30 Temperature Pulse Rate 65 64 62 Respiratory 20 18 20 Rate Blood Pressure 220/83 225/89 241/97 O2 Sat by Pulse 98 100 100 Oximetry 03/08/20 03/08/20 03/08/20 00:45 01:00 01:50 Temperature 98.2 F Pulse Rate 62 61 62 Respiratory 14 16 16 Rate Blood Pressure 165/105 195/73 226/89 O2 Sat by Pulse 96 100 Oximetry 03/08/20 03/08/20 03/08/20 02:10 02:33 02:50 Temperature 98.2 F Pulse Rate 57 L 64 57 L Respiratory 15 15 18 Rate Blood Pressure 215/78 179/71 207/77 O2 Sat by Pulse 99 98 96 Oximetry - Reevaluation(s) Reevaluation #1: 03/07/20 22:37 Case discussed with stroke team, Dr. Fernández, history of recommendations are incorporated. Critical Care Time Critical Care Time: Yes (35 minutes) Disposition Clinical Impression: Acute ischemic stroke Disposition: OTHER INSTITUTION NOT DEFINED Condition: Fair Referrals: Godfrey Griffin MD [Primary Care Provider] - 1-2 days - Out of Hospital Transfer - Req. Specs Out of Hospital Transfer - Requested Specifics: Other Emergency Center
[2020-03-07 22:35] LABS: Glucose,Whole Blood 169 mg/dL (75-99)
[2020-03-07 22:47] LABS: Basophils % (A) 1 %; Eosinophils # (A) 0.2 k/uL (0-0.7); Eosinophils % (A) 3 %; HCT 42.9 % (34.0-46.0); HGB 13.8 gm/dL (11.4-16.0); Lymphocytes # (A) 1.6 k/uL (1.0-4.8); Lymphocytes % (A) 24 %; MCH 27.4 pg (25.0-35.0); MCHC 32.2 g/dL (31.0-37.0); Mean Platelet Volume 8.5; Monocytes # (A) 0.4 k/uL (0-1.0); Monocytes % (A) 6 %; Neutrophils # (A) 4.5 k/uL (1.3-7.7); Neutrophils % (A) 65 %; Platelet Count 161 k/uL (150-450); RBC 5.05 m/uL (3.80-5.40); RDW 13.6 % (11.5-15.5); WBC 6.8 k/uL (3.8-10.6)
--- NOTE | 2020-03-07 22:51 | CT ---
EXAMINATION TYPE: CT brain wo con for TPA DATE OF EXAM: 03/07/2020 COMPARISON: None HISTORY: Neuro deficit, acute, stroke suspected, left hand numbness CT DLP: 1042.8 mGycm Automated exposure control for dose reduction was used. There is cerebral cortical atrophy. There is hypodensity in the left parietal lobe anteriorly consist ent with old 4 cm cortical infarct. There is no mass effect nor midline shift. There is no sign of in tracranial hemorrhage. There is some hypodensity in the anterior internal capsule bilaterally. Calvar ium is intact. 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 Lacunar infarcts anterior internal capsule bilaterally. Cerebral atrophy. No hemorrhage.
[2020-03-07 22:54] LABS: Prothrombin Time 10.5 sec (9.0-12.0)
[2020-03-07 22:55] LABS: Partial Thromboplastin Time 26.4 sec (22.0-30.0)
--- NOTE | 2020-03-07 22:58 | XR ---
EXAMINATION TYPE: XR chest 1V portable DATE OF EXAM: 03/07/2020 COMPARISON: 02/18/2018 HISTORY: Altered mental status weakness TECHNIQUE: FINDINGS: Heart is enlarged. There is no gross heart failure. Lungs are clear of consolidation. Thora cic aorta is atheromatous. There are chest leads. IMPRESSION: Cardiomegaly. No heart failure. No change compared to old exam.
[2020-03-07 23:15] LABS: ALT 28 U/L (4-34); AST 33 U/L (14-36); African American GFR (CKD) >90 (>60 ml/min/1.73 sqM); Albumin 4.2 g/dL (3.5-5.0); Alkaline Phosphatase 48 U/L (38-126); Anion Gap 6 mmol/L; Blood Urea Nitrogen 32 mg/dL (7-17); Calcium 9.4 mg/dL (8.4-10.2); Carbon Dioxide 29 mmol/L (22-30); Chloride 97 mmol/L (98-107); Glucose 181 mg/dL (74-99); Non-African American GFR(CKD) 83 (>60 ml/min/1.73 sqM); Potassium 3.8 mmol/L (3.5-5.1); Sodium 132 mmol/L (137-145); Total Bilirubin 0.4 mg/dL (0.2-1.3); Total Protein 7.3 g/dL (6.3-8.2)
--- NOTE | 2020-03-07 23:23 | CT ---
EXAMINATION TYPE: CT angio head neck DATE OF EXAM: 03/07/2020 COMPARISON: HISTORY: Neuro deficit, acute, stroke suspected, left hand/leg numbness CT DLP: 430.7 mGycm Automated exposure control for dose reduction was used. CONTRAST: Performed with IV Contrast, patient injected with 100 mL of Isovue 370. There are 3-D post processed images. There is normal branching pattern of the great vessels on the aortic arch. There is arterial flow in both subclavian arteries. Thoracic aorta is atheromatous. The ascending aorta measures 3.2 cm. There is no dissection. There is arterial flow in the common internal and external carotid arteries bilaterally. There is no significant plaque formation. There is no evidence of carotid or vertebral artery aneurysm or dissect ion. There is symmetric opacification of the vertebral arteries. There is arterial flow in the verteb robasilar artery system. The basilar artery fills more from the right side than the left. There is arterial flow in the anterior middle and posterior cerebral arteries. There is no mass effec t. There is no evidence of aneurysm or neovascularity. There is normal contrast opacification of the venous sinuses. I see no evidence of intracranial hemodynamic stenosis. IMPRESSION: No evidence of hemodynamic stenosis. Negative CT angiogram of the neck. Negative CT angiogram of the brain.
[2020-03-08] MEDS ORDERED: LABETALOL 5 MG/ML VIAL MDV IVP STA (00:26)
[2020-03-08] MEDS ORDERED: hydrALAZINE HCL 20 MG/ML 1 ML VIAL IVP STA (01:56)
[2020-03-08 01:58] VITALS: TEMP 98.2
[2020-03-08 03:00] VITALS: BP 207/77; PULSE 57; RESP 18
== END 2020-03-08 03:00 | disposition other institution (70) ==
LOC: EC 22:10
DX: I63.9 Cerebral infarction, unspecified (principal); I48.92 Unspecified atrial flutter; I25.119 Atherosclerotic heart disease of native coronary artery with unspecified angina pectoris; I10 Essential (primary) hypertension; E78.5 Hyperlipidemia, unspecified; I48.0 Paroxysmal atrial fibrillation; E11.40 Type 2 diabetes mellitus with diabetic neuropathy, unspecified; E11.51 Type 2 diabetes mellitus with diabetic peripheral angiopathy without gangrene; M19.90 Unspecified osteoarthritis, unspecified site; Z79.01 Long term (current) use of anticoagulants; Z79.84 Long term (current) use of oral hypoglycemic drugs; Z79.899 Other long term (current) drug therapy; Z88.1 Allergy status to other antibiotic agents; Z91.040 Latex allergy status; Z88.2 Allergy status to sulfonamides; Z88.8 Allergy status to other drugs, medicaments and biological substances; Z91.013 Allergy to seafood; Z90.11 Acquired absence of right breast and nipple; Z86.73 Personal history of transient ischemic attack (TIA), and cerebral infarction without residual deficits; Z96.642 Presence of left artificial hip joint; Z85.3 Personal history of malignant neoplasm of breast
CPT/HCPCS: 36415; 93005; 80053; 84484; 85025; 85610; 85730; 71045; 70496; 70450; 70498; 99285; 96374; 96375; Q9967

== ENCOUNTER → 2020-12-08 | Outpatient (CLI) | payer MEDICARE, OTHER ==
--- NOTE | 2020-12-08 12:03 | BD ---
EXAMINATION TYPE: Axial Bone Density DATE OF EXAM: 12/08/2020 COMPARISON: 12/07/2018 CLINICAL HISTORY: Height: 62.5 IN Weight: 145 LBS FRAX RISK QUESTIONS: History of Fracture in Adulthood: LT HIP FX 2008? Secondary Osteoporosis: RISK FACTORS HISTORY OF: Hip Fracture (Left): 2008 Surgery to Hip(left): 2008 Active: LIMITED WALKER Postmenopausal woman: PARTIAL HYST AGE 51 Lost more than 2 inches in height since high school: YES 3" MEDICATIONS: Osteoporosis Medications: YES Which medication: ALENDRONATE SODIUM How Lon YEARS Additional Medications: JANUVIA,METOPROLOL, ELIQUIS, GABAPENTIN, PRAVASTATIN, LISINOPRIL,ALENDRONATE SODIUM, ANASTRAZOLE, ISOSORBIDE MONONITRATE, REPAQLINIDE, CENTRUM SILVER, TYLENOL, ZYRTEC, CALCIUM, AZO, FISH OIL, Additional History: BREAST CANCER EXAM MEASUREMENTS: Bone mineral densitometry was performed using the [employer] System. Bone mineral density as measured about the Lumbar spine is: ----- L1-L4(G/cm2): 1.227 T Score Values are as follows: ----- L2: 1.0 ----- L3: 0.6 ----- L4: 0.5 ----- L1-L4: 0.4 Bone mineral density has: Increased 8.3% since study of: 12/07/2018 Bone mineral density about the R hip (g/cm2): 0.748 T Score values are as follows: -----R Neck: -2.1 -----R Total: -1.9 Bone mineral density has: Decreased -0.9% since study of: 12/07/2018 IMPRESSION: Osteopenia NOTE: T-SCORE=SD OF THE YOUNG ADULT MEAN.
== END | disposition home or self-care (01) ==
LOC: RADBDWWP 09:07
PROVIDERS: ATTEND Internal Medicine Hematology & Oncology
DX: M85.851 Other specified disorders of bone density and structure, right thigh (principal); Z85.3 Personal history of malignant neoplasm of breast
CPT/HCPCS: 77080

== ENCOUNTER → 2021-01-06 | Outpatient (CLI) | payer MEDICARE, OTHER ==
--- NOTE | 2021-01-06 22:34 | CT ---
EXAMINATION TYPE: CT chest wo con DATE OF EXAM: 01/06/2021 COMPARISON: None HISTORY: SOB, hx of breast ca CT DLP: 353 mGycm, Automated exposure control for dose reduction was used. CONTRAST: Performed injected with 0 mL of Isovue 300. TECHNIQUE: Axial images were obtained at 5 mm thick sections. Reconstructed images are reviewed on [email or web address] computer in the coronal plane. FINDINGS: Portion of the thyroid visualized is normal. Bilateral breast prostheses are noted. There is a 0.2 cm nodule or infiltrate in the anterior lateral right upper lung field. Series 4 image 14. No enlarged mediastinal or hilar adenopathy is evident. The ascending aorta diameter at the level o f the main pulmonary artery is 3.5 cm. The main pulmonary artery diameter at the bifurcation is 2.6 cm. Some coronary artery calcification is noted. Extensive calcifications through the aorta. Limited CT sections are obtained through the upper abdomen. Abdomen is essentially unremarkable. Osse ous structures appear within normal limits. Note is made of pectus excavatum. IMPRESSIONS: 1. Tiny nodule or infiltrate right upper lobe. Follow-up study in 6 months can be performed. 2. No suspicious changes otherwise evident to suggest metastasis.
== END | disposition home or self-care (01) ==
LOC: RADCTMAIN 17:13
PROVIDERS: ATTEND Internal Medicine Hematology & Oncology
DX: R06.02 Shortness of breath (principal); Z85.3 Personal history of malignant neoplasm of breast
CPT/HCPCS: 71250